=== PATIENT | male | born 1960 | race Caucasian/White ===

== ENCOUNTER 2018-01-09 18:30 | Inpatient (IN) | payer OTHER ==
[~2018-01-09] VITALS: Ht 185.4 cm; Wt 99.9 kg
[2018-01-09] MEDS ORDERED: SODIUM CHLORIDE 0.9% 1000ML 1,000 ML IV STA (18:42)
[2018-01-09 18:56] LABS: BASOPHILS % 0.1 % (0.0-1.0); LYMPHOCYTES # (AUTO) 21.2 (1.0-3.2); LYMPHOCYTES % 95.9 % (18.0-39.1); MEAN CORPUSCULAR HEMOGLOBIN 31.5 pg (28-32); MEAN CORPUSCULAR HGB CONC 34.5 g/dL (31-35); MEAN CORPUSCULAR VOLUME 91.5 fL (81-99); MONOCYTES # (AUTO) 0.4 (0.2-0.8); MONOCYTES % 1.9 % (4.4-11.3); NEUTROPHILS # (AUTO) 0.4 (2.1-6.9); PLATELET COUNT 152 x10e3/uL (140-360); RED BLOOD COUNT 3.17 x10e6/uL (4.3-5.7); RED CELL DISTRIBUTION WIDTH 13.7 % (11.7-14.4)
[2018-01-09] MEDS ORDERED: ACETAMINOPHEN 1000 MG/100 ML IV STA (18:59)
[2018-01-09] MEDS ORDERED: SODIUM CHLORIDE 0.9% 1000ML 1,000 ML IV ONE (19:00)
[2018-01-09 19:04] LABS: INR 1.28; PARTIAL THROMBOPLASTIN TIME 36.7 seconds (23.8-35.5)
[2018-01-09 19:14] LABS: ALBUMIN/GLOBULIN RATIO 0.9 (0.8-2.0); ANION GAP 16.9 mmol/L (8-16); CALCIUM 8.1 mg/dL (8.4-10.2); CREATININE, SERUM 2.14 mg/dL (0.72-1.25)
--- NOTE | 2018-01-09 19:14 | Diagnostic Imaging Report ---
EXAMINATION: CHEST SINGLE (PORTABLE) INDICATION: Cough and shortness of breath \S\ERMD ORDER \S\[id number] \S\1845 \S\Y COMPARISON: 12/11/2012 FINDINGS: AP view Limited by body habitus and low lung volumes. TUBES and LINES: None. LUNGS: Low lung volumes. Lungs are clear. There is no evidence of pneumonia or pulmonary edema. PLEURA: No pleural effusion or pneumothorax. HEART AND MEDIASTINUM: The cardiomediastinal silhouette is unremarkable. BONES AND SOFT TISSUES: No acute osseous lesion. Soft tissues are unremarkable. UPPER ABDOMEN: No free air under the diaphragm. IMPRESSION: No acute thoracic abnormality. Signed by: Dr. Juan J Dominguez MD on 01/09/2018 7:10 PM
[2018-01-09] MEDS ORDERED: MAGNESIUM SULFATE 2GM/50ML 50 ML IV ONE (19:15)
[2018-01-09] MEDS ORDERED: POTASSIUM CHLORIDE 20 MEQ TAB CR PO STA (19:15)
[2018-01-09 19:17] LABS: MAGNESIUM 1.1 MG/DL (1.3-2.1); POTASSIUM 2.9 mmol/L (3.5-5.1)
[2018-01-09 19:19] LABS: B-TYPE NATRIURETIC PEPTIDE2 13.2 pg/mL (0-100)
[2018-01-09 19:20] LABS: CREATINE KINASE MB 1.1 ng/mL (0-5.0)
[2018-01-09 19:31] LABS: HYPOCHROMASIA SLIGHT; LYMPHOCYTES % (MANUAL) 95 % (19-48); MONOCYTES % (MANUAL) 1 % (3.4-9.0); PLATELET ESTIMATE ADEQUATE; PLATELET MORPHOLOGY COMMENT NORMAL; RBC MORPHOLOGY COMMENT NORMAL
[2018-01-09] MEDS ORDERED: ONDANSETRON HCL INJ 2 MG/ML VIAL IV PRN (20:00)
[2018-01-09] MEDS ORDERED: CEFTRIAXONE SOD 1 GM VIAL IV SCH (20:00)
[2018-01-09] MEDS: AZITHROMYCIN 500MG/NS 250 ML 250 ML IV SCH (20:24)
[2018-01-09] MEDS: CEFTRIAXONE SOD 1 GM VIAL IV SCH (20:24)
--- OUTSIDE RECORDS SUMMARY | 2018-01-09 20:26 | XMS REPORT ---
Author Author [facility] Address Unknown Phone Unavailable Care Team Providers Care Goal Umpire Name Role Phone MUSTAPHA BERRIOS Unavailable Unavailable Problems This patient has no known problems. Allergies, Adverse Reactions, Alerts This patient has no known allergies or adverse reactions. Medications This patient has no known medications. Results Test Description Test Time Test Comments Text Results Atomic Results Result Comments CHEST SINGLE (PORTABLE) [place] [address] Patient Name: EDEN OVALLES MR #: [id number] : 1960 Age/Sex: 57/M Req #: [id number] Adm Physician: Ordered by: VIDYA SOLITARIO EDUCATIONAL THERAPIST Report #: [id number] Location: ER Room/Bed: Procedure: [id number] DX/CHEST SINGLE (PORTABLE) Exam Date: 01/09/18 Exam Time: 1845 REPORT STATUS: Signed EXAMINATION: CHEST SINGLE (PORTABLE) INDICATION: Cough and shortness of breath COMPARISON: 12/11/2012 FINDINGS: AP view Limited by body habitus and low lung volumes. TUBES and LINES: None. LUNGS: Low lung volumes. Lungs are clear. There is no evidence of pneumonia or pulmonary edema. PLEURA: No pleural effusion or pneumothorax. HEART AND MEDIASTINUM: The cardiomediastinal silhouette is unremarkable. BONES AND SOFT TISSUES: No acute osseous lesion. Soft tissues are unremarkable. UPPER ABDOMEN: No free air under the diaphragm. IMPRESSION: No acute thoracic abnormality. Signed by: Dr. Juan J Lai MD on 01/09/2018 7:10 PM Dictated By: JUAN J LAI MD 09 Transcribed By: KELSIE on 01/09/181909 COPY TO: VIDYA SOLITARIO NP
--- NOTE | 2018-01-09 20:52 | History and Physical ---
HISTORY OF PRESENT ILLNESS: Mr. Bocanegra is a white male patient of mine for approximately 7-8 years with clinical lymphatic leukemia. He has been treated extensively at the present time on Imbruvica. The patient was seen in the office because of upper respiratory tract infection consisting of cough with slightly yellowish sputum. The physical findings were consistent with bronchitis. Subsequently, the patient was given Vibramycin 100 mg p.o. b.i.d. for 10 days. I have also kept in touch with the patient and the to make sure that the symptoms sangeetha. I advised the patient that if the symptoms did not sangeetha to call me. The called me yesterday, and I advised the patient to be hospitalized. However, the patient waited until today. He comes to the ER with shortness of breath. The chest x-ray was reported normal. However, the symptoms are much more than the chest x-ray subsequently seen, admitted for further evaluation and treatment. PAST MEDICAL HISTORY: Chronic lymphatic leukemia. SOCIAL HISTORY: Noncontributory. FAMILY HISTORY: Noncontributory. ALLERGIES: NONE. MEDICATIONS: Imbruvica. REVIEW OF SYSTEMS: HEENT: Normal. CARDIAC: Normal. RESPIRATORY: At the present time, has bronchitis. GI: Normal. : Normal. MUSCULOSKELETAL: Normal. SKIN AND BREASTS: Normal. NEURO/ENDOCRINE: Normal. PHYSICAL EXAMINATION GENERAL: A large-built male. VITAL SIGNS: Pulse 140. Blood pressure 120/80. HEART: Tachycardic. LUNGS: Showing a few crepitations. ABDOMEN: Obese. There is no hepatosplenomegaly. RECTAL EXAM: Deferred. CENTRAL NERVOUS SYSTEM: Normal. EXTREMITIES: Essentially normal. IMPRESSION 1. Chronic lymphatic leukemia, stage 4, being treated with Imbruvica. 2. Possible bronchopneumonia. PLAN: Have appropriate cultures. CT of the chest. Aggressive antibiotics. Pulmonary consult as well as infectious disease consult. Job#: [id number]
[2018-01-09 21:00] VITALS: BP 104/61
--- NOTE | 2018-01-09 21:35 | Diagnostic Imaging Report ---
EXAM: CT CHEST WO DATE: 01/09/2018 7:47 PM INDICATION: \S\fever, cough, tachycardia \S\[id number] \S\2056 COMPARISON: None TECHNIQUE: Multidetector CT scanning of the chest was performed. Coronal and sagittal multiplanar reformations were obtained. IV Contrast: 0 ml Isovue 370/300 FINDINGS: LUNGS AND PLEURA: Minimal scattered areas of atelectasis or scarring. Stable nodular thickening of the right minor fissure seen on prior CT abdomen. No consolidations or edema. No effusions or pneumothorax. HEART, MEDIASTINUM, VESSELS: Normal heart size with coronary artery calcification. No pericardial effusion. No adenopathy. UPPER ABDOMEN: Partially imaged hepatosplenomegaly. MUSCULOSKELETAL: Healed left-sided rib fractures. Prior T12 vertebroplasty with mild anterior/central height loss. IMPRESSION: No acute abnormality. No evidence of pneumonia. Signed by: Dr Joselyn Lee MD on 01/09/2018 9:32 PM
[2018-01-10] VITALS (9 sets, daily range): BP systolic 88–142; BP diastolic 54–78
[2018-01-10] MEDS: ACETAMINOPHEN 325 MG TAB PO PRN ×3 (00:24→10:11)
[2018-01-10] MEDS: CEFTRIAXONE SOD 1 GM VIAL IV SCH (01:01)
[2018-01-10] MEDS: AZITHROMYCIN 500MG/NS 250 ML 250 ML IV SCH (01:01)
[2018-01-10 07:14] LABS: ALBUMIN 2.5 g/dL (3.5-5.0); ALBUMIN/GLOBULIN RATIO 0.9 (0.8-2.0); CALCIUM 7.7 mg/dL (8.4-10.2); CREATININE, SERUM 2.04 mg/dL (0.72-1.25); MAGNESIUM 1.3 MG/DL (1.3-2.1)
[2018-01-10 07:38] LABS: HEMATOCRIT 25.5 % (38.2-49.6); LYMPHOCYTES # (AUTO) 6.7 (1.0-3.2); LYMPHOCYTES % 90.9 % (18.0-39.1); MEAN CORPUSCULAR HEMOGLOBIN 31.5 pg (28-32); MEAN CORPUSCULAR HGB CONC 33.7 g/dL (31-35); MEAN CORPUSCULAR VOLUME 93.4 fL (81-99); MONOCYTES # (AUTO) 0.4 (0.2-0.8); MONOCYTES % 5.9 % (4.4-11.3); NEUTROPHILS # (AUTO) 0.2 (2.1-6.9); NEUTROPHILS % 2.9 % (38.7-80.0); RED BLOOD COUNT 2.73 x10e6/uL (4.3-5.7)
[2018-01-10 07:47] LABS: HEMOGLOBIN 8.6 g/dL (14.0-18.0); PLATELET COUNT 77 x10e3/uL (140-360)
[2018-01-10] MEDS ORDERED: AZITHROMYCIN 500MG/NS 250 ML 250 ML IV SCH (09:00)
[2018-01-10 09:19] LABS: HYPOCHROMASIA SLIGHT; LYMPHOCYTES % (MANUAL) 87 % (19-48); MONOCYTES % (MANUAL) 7 % (3.4-9.0); NEUTROPHILS % (MANUAL) 5 % (40-74); PLATELET ESTIMATE SLIGHTLY DECREASED; PLATELET MORPHOLOGY COMMENT FEW LARGE; RBC MORPHOLOGY COMMENT NORMAL
[2018-01-10] MEDS ORDERED: POTASSIUM CHL 40 MEQ in SODIUM CHLORIDE 0.9% 250ML 230 ML IV SCH ×4 (10:15)
[2018-01-10] MEDS ORDERED: SODIUM CHLORIDE 0.9% 250ML 250 ML ONE (10:25)
--- NOTE | 2018-01-10 11:47 | Diagnostic Imaging Report ---
PROCEDURE:X-RAY PARANASAL SINUSES, COMPLETE COMPARISON:None. INDICATIONS:SINUSITIS FINDINGS: The paranasal sinuses are clear. No fluid levels are identified. No expansile or destructive osseous lesions are seen. No evidence of fracture. CONCLUSION: No radiographic evidence of acute sinusitis. Dictated by: Jovan Majano M.D. on 01/10/2018 at 11:48 Electronically approved by: Jovan Majano M.D. on 01/10/2018 at 11:48
[2018-01-10] MEDS ORDERED: DIATRIZOATE MEGL/DIATRIZOA SOD 30 ML BTL PO ONE (12:50)
--- NOTE | 2018-01-10 13:11 | Consultation ---
DATE OF CONSULTATION: January 10, 2018 PULMONARY CONSULTATION PATIENT OF: Dr. Messer. HISTORY OF PRESENT ILLNESS: Charming, but unfortunate 57-year-old gentleman with a history of CLL diagnosed in 2005. He said he was in remission until 2017. Has been ill for approximately 2 weeks with cough, sinusitis. Cough has been nonproductive. He has had a nonproductive cough on and off for 4 months. He has had diarrhea for the last 3 days. He was recently started on doxycycline. HOME MEDICATIONS: Include allopurinol, ramipril, and Imbruvica. 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 Born in [place]. PAST SURGICAL HISTORY: He had total knee replacement of right knee. He has had ear surgeries for cholesteatoma. FAMILY HISTORY: Positive for renal cancer, emphysema, and hypertension. PHYSICAL EXAMINATION GENERAL: He is a well-developed white male, anxious, but in no acute distress. VITAL SIGNS: Temperature 100.2, blood pressure 114/66, pulse 125, and respirations 22. HEAD: Normocephalic, atraumatic. EYES: Extraocular movements intact. LUNGS: Clear. HEART: Regular rhythm. ABDOMEN: Nontender. EXTREMITIES: Nonedematous. IMPRESSION AND PLAN: There are vague infiltrates in the right lung, thought more likely to be scar than acute infection; however, the patient is quite immunosuppressed. Continue therapy of pneumonia. We will check stool and sputum. Request sinus series. Infectious disease has also been consulted for antibiotic therapy. Currently, the patient is receiving Rocephin and Zithromax. Thank you for this kind referral. Job#: [id number] ANAND
[2018-01-10 14:18] LABS: COLOR,URINE YELLOW (YELLOW)
[2018-01-10 14:19] LABS: CLARITY,URINE CLOUDY (CLEAR); LEUKOCYTE ESTERASE ,URINE NEGATIVE (NEGATIVE); NITRITE,URINE NEGATIVE (NEGATIVE); PROTEIN,URINE DIPSTICK 2+ (NEGATIVE)
[2018-01-10 14:20] LABS: BILIRUBIN,URINE NEGATIVE (NEGATIVE); KETONES,URINE NEGATIVE (NEGATIVE); URINE UROBILINOGEN 0.2 mg/dL (0.2 - 1)
[2018-01-10 14:27] LABS: BACTERIA,URINE FEW /HPF; EPITHELIAL CELLS,URINE FEW /LPF
[2018-01-10 14:28] LABS: AMORPHOUS SEDIMENT,URINE FEW (FEW)
[2018-01-10] MEDS: FLUCONAZOLE 200 MG/100 ML 100 ML IV SCH (14:30)
[2018-01-10] MEDS ORDERED: ALBUTEROL SULF 0.083% NEB SOLN 3 ML NEB NEB SCH (15:00)
--- NOTE | 2018-01-10 15:09 | Consultation ---
DATE OF CONSULTATION: January 10, 2018 REASON FOR CONSULTATION: This patient has fever, chills and fatigue. HISTORY OF PRESENT ILLNESS: This is a very pleasant 57-year-old gentleman who has history of chronic lymphocytic leukemia which he has had for 16 years. He was in remission, then he had it again apparently seven years ago. Patient is taking Imbruvica. Patient is doing well otherwise. He has no complaints. The patient was doing well until about 3 weeks ago when he started to have cough which was dry. This getting progressively worse in terms of the cough. He gets easily short of breath, then he started to have fever and not feeling well. He saw Dr. Messer and he gave him doxycycline but the patient did not improve. He sent to the emergency room to be admitted because he said if he walks from the bed to the restroom he gets really short of breath and he is unsteady. According to the he was a little bit confused when he first came here but he is better now. PAST MEDICAL HISTORY: Chronic lymphocytic leukemia. PAST SURGICAL HISTORY: Denies. ALLERGIES: NKA. SOCIAL HISTORY: He denies smoking, drug abuse, alcohol abuse. He has 1 dog. He works in [employer]. The patient apparently is moving to a new house and he has been cleaning the attic a few weeks ago and there was some mold in the attic. REVIEW OF SYSTEMS HEENT: There is no headache or visual changes, hearing changes. GI: There is no nausea, no vomiting, no diarrhea. CARDIAC: There is no arrhythmia or chest pain. NEURO: No seizure activity. SKIN: There is no rash, joint swelling or edema. The patient is overall, he said, extremely weak when he walks but when he is lying in bed is feeling better. LABORATORY DATA: Reviewed. White count 7.34, hemoglobin 8.6, platelets 77, creatinine 2.04. MEDICATIONS: List reviewed. He is currently on ceftriaxone, azithromycin. CAT scan of chest was negative. Chest x-ray was negative. PHYSICAL EXAMINATION GENERAL: He is current alert, oriented. Does not seem to be in acute distress. VITALS: Stable. Currently afebrile. HEENT: Normocephalic, not icteric. NECK: Supple. CHEST: Clear bilateral. HEART: S1, S2. No S3, no S4, no murmur. ABDOMEN: Soft. Bowel sounds present. No tenderness. EXTREMITIES: No edema. IMPRESSION: Fever and shortness of breath. His influenza has been negative. I am concerned about histoplasmosis or other fungal in a patient who has been in an attic around old mold. Will put him on Diflucan. I think he is feeling better already because of the IV fluid. Will keep on current choice of antibiotic. Will check for other pathogens such as chlamydia mycoplasma although the CAT scan does not really reveal any of that. Will Check a CT of abdomen and pelvic to rule out any other abnormality in the abdomen. I would like to thank Dr. Messer for asking me to see this very interesting case. Will follow with you. Job#: [id number] RUPERTO
[2018-01-10] MEDS ORDERED: ONDANSETRON HCL 4 MG ORAL DISINTEGRATING TAB PO PRN (15:15)
[2018-01-10] MEDS ORDERED: ACETAMINOPHEN 1000 MG/100 ML 100 ML IV ONE (15:19)
[2018-01-10] MEDS: ACETAMINOPHEN 1000 MG/100 ML IV SCH ×2 (15:41→23:38)
--- NOTE | 2018-01-10 15:53 | Diagnostic Imaging Report ---
PROCEDURE: CT ABDOMEN AND PELVIS WITHOUT CONTRAST TECHNIQUE: The abdomen and pelvis were scanned utilizing a multidetector helical scanner from the diaphragm to the lesser trochanter after the oral administration of dilute Gastrografin. No IV contrast was given due to decreased GFR. Coronal and sagittal multiplanar reformations were obtained. COMPARISON: [facility], CT, CT ABDOMEN/PELVIS W, 12/20/2012, 17:32. [facility], CT, CT ABDOMEN W, 07/19/2016, 14:33. INDICATIONS: rule out infection, fever cough FINDINGS: ABSENCE OF INTRAVENOUS CONTRAST DECREASES SENSITIVITY FOR DETECTION OF FOCAL LESIONS AND VASCULAR PATHOLOGY. LOWER THORAX: Stable 6 mm mariusz-fissural nodule at the right major fissure (series 2 image 6, and sagittal image 54). Linear subsegmental atelectasis or scarring in the lingula. HEPATOBILIARY: Liver is moderately enlarged, measuring 20.0 cm in the right midclavicular line. 6 mm hypodense lesion in hepatic segment (series 2, image 27), which is too small to characterize, but likely represents a small cyst. No other focal lesions. No biliary ductal dilation. Gallbladder is unremarkable. SPLEEN: Mild splenomegaly, measuring 15.7 cm in AP diameter. This is markedly decreased since the prior exam. PANCREAS: No focal masses or ductal dilatation. ADRENALS: No adrenal nodules. KIDNEYS/URETERS: No hydronephrosis, stones, or contour abnormalities. PELVIC ORGANS/BLADDER: Bladder, prostate and seminal vesicles are unremarkable. PERITONEUM / RETROPERITONEUM: No free air or fluid. LYMPH NODES: Interval decrease in size of 2 aortocaval nodes which measure 0.8 and 1.0 cm in short axis (series 2, image 40 and 45), which previously measured 1.3 and 1.6 cm, respectively. Slight interval increase in size of left common iliac node which measures 1.1 cm in short axis (series 2 image 55) and previously measured 0.9 cm. Stable 1.1 cm right common iliac node (series 2, image 52). Interval decrease in size of 1.0 cm right common iliac node (series 2, image 55), which previously measured 1.5 cm. No other adenopathy. VESSELS: Unremarkable for noncontrast exam.. GI TRACT: No bowel dilation or evidence of obstruction. No pericolonic inflammatory changes. BONES AND SOFT TISSUES: No aggressive lytic lesion. Stable anterior wedge deformity of the L3 vertebral body. Vertebroplasty changes at T12. Right moderate fat and small bowel containing inguinal hernia. Bowel is unremarkable, without obstruction, wall thickening, or free fluid. Moderate to large inguinal hernia containing fat and a small portion of the descending colon. The bowel is unremarkable, without obstruction, wall thickening, or free fluid.. IMPRESSION: 1. no CT evidence of intra-abdominal free fluid or fluid collection to suggest abscess, within the limitations of this noncontrast exam. 2. Aortocaval and common iliac adenopathy is decreased since the prior exam. A single left common iliac node is minimally increased in size when compared to prior exam. No new adenopathy. 3. Moderate hepatomegaly. Marked interval improvement in previously visualized splenomegaly, which is now mild. 4. Bilateral fat and bowel containing inguinal hernias, without evidence of strangulation or incarceration. Kashmir Martinez M.D. Dictated by: Kashmir Martinez M.D. on 01/10/2018 at 15:54 Electronically approved by: Kashmir Martinez M.D. on 01/10/2018 at 15:54
[2018-01-10] MEDS ORDERED: SODIUM CHLORIDE 0.9% 1000ML 1,000 ML IV SCH (16:15)
[2018-01-10] MEDS ORDERED: METOPROLOL TARTRATE INJ 1 MG/ML VIAL IV PRN (16:15)
[2018-01-10] MEDS ORDERED: SODIUM CHLORIDE 0.9% 1000ML 1,000 ML ONE (16:38)
[2018-01-10] MEDS ORDERED: METOPROLOL TARTRATE 25 MG TAB PO PRN (17:15)
[2018-01-10] MEDS: LEVALBUTEROL HCL SOLN NEBU 0.63 MG/3 ML NEB INH PRN (21:30)
--- NOTE | 2018-01-10 22:38 | Diagnostic Imaging Report ---
CHEST SINGLE (PORTABLE), 01/10/2018 9:47 PM Technique: CHEST SINGLE (PORTABLE) Comparison: 01/09/2018 Clinical history: Shortness of breath Findings: Stable appearance of the heart, mediastinum, lungs and pleural spaces. Impression: 1. Lines/Tubes: None 2. No acute abnormality. Signed by: Dr Joselyn Lee MD on 01/10/2018 10:34 PM
[2018-01-11] VITALS (7 sets, daily range): BP systolic 93–140; BP diastolic 54–76
[2018-01-11] MEDS: SODIUM CHLORIDE 0.9% 1000ML 1,000 ML IV SCH ×2 (00:06→12:30)
[2018-01-11] MEDS: LORAZEPAM INJ 2 MG/ML VIAL IV PRN ×2 (03:14→23:15)
[2018-01-11] MEDS: CEFTRIAXONE SOD 1 GM VIAL IV SCH (05:39)
[2018-01-11] MEDS: ACETAMINOPHEN 1000 MG/100 ML IV SCH ×3 (05:39→17:37)
[2018-01-11 07:04] LABS: BASOPHILS % 0.1 % (0.0-1.0); HEMATOCRIT 24.9 % (38.2-49.6); HEMOGLOBIN 8.4 g/dL (14.0-18.0); LYMPHOCYTES # (AUTO) 10.5 (1.0-3.2); LYMPHOCYTES % 92.9 % (18.0-39.1); MEAN CORPUSCULAR HGB CONC 33.7 g/dL (31-35); MEAN CORPUSCULAR VOLUME 91.9 fL (81-99); MONOCYTES # (AUTO) 0.4 (0.2-0.8); MONOCYTES % 3.6 % (4.4-11.3); NEUTROPHILS # (AUTO) 0.4 (2.1-6.9); NEUTROPHILS % 3.1 % (38.7-80.0); PLATELET COUNT 101 x10e3/uL (140-360); RED BLOOD COUNT 2.71 x10e6/uL (4.3-5.7)
[2018-01-11 07:22] LABS: ALBUMIN 2.2 g/dL (3.5-5.0); ALBUMIN/GLOBULIN RATIO 0.7 (0.8-2.0); ANION GAP 12.8 mmol/L (8-16); CALCIUM 7.9 mg/dL (8.4-10.2); CREATININE, SERUM 1.75 mg/dL (0.72-1.25)
[2018-01-11 07:30] LABS: POTASSIUM 2.8 mmol/L (3.5-5.1)
[2018-01-11 07:49] LABS: MAGNESIUM 1.4 MG/DL (1.3-2.1); PHOSPHORUS 2.3 MG/DL (2.3-4.7)
[2018-01-11] MEDS ORDERED: POTASSIUM CHLORIDE 20MEQ/100ML 300 ML IV ONE (08:00)
[2018-01-11] MEDS: FLUCONAZOLE 200 MG/100 ML 100 ML IV SCH (09:39)
[2018-01-11 10:54] LABS: HYPOCHROMASIA SLIGHT; LYMPHOCYTES % (MANUAL) 98 % (19-48); MONOCYTES % (MANUAL) 2 % (3.4-9.0)
[2018-01-11 10:55] LABS: ANISOCYTOSIS SLIGHT; PLATELET ESTIMATE SLIGHTLY DECREASED; PLATELET MORPHOLOGY COMMENT NORMAL; POIKILOCYTOSIS SLIGHT; RBC MORPHOLOGY COMMENT NORMAL
--- NOTE | 2018-01-11 10:57 | Diagnostic Imaging Report ---
EXAMINATION: CHEST XRAY LINE PLACEMENT INDICATION: \S\PICC PLACEMENT COMPARISON: Chest x-ray 01/10/2018. FINDINGS: AP view TUBES and LINES: New right PICC line with tip at high SVC. LUNGS: Lungs are well inflated. There are bibasilar atelectasis. Increasing perihilar interstitial opacities, consistent with interstitial edema. PLEURA: No pleural effusion or pneumothorax. HEART AND MEDIASTINUM: The cardiomediastinal silhouette is unremarkable. BONES AND SOFT TISSUES: No acute osseous lesion. Soft tissues are unremarkable. UPPER ABDOMEN: No free air under the diaphragm. IMPRESSION: 1. New right PICC line with tip at high SVC. 2. New increasing early interstitial edema. Signed by: Dr. Jose Carlos Guzmán M.D. on 01/11/2018 10:53 AM
[2018-01-11] MEDS: PANTOPRAZOLE SOD 40 MG TABEC PO SCH (12:00)
--- NOTE | 2018-01-11 14:18 | Consultation ---
DATE OF CONSULTATION: January 11, 2018 CARDIOLOGY CONSULTATION REASON FOR CONSULTATION: Tachycardia. HISTORY OF PRESENT ILLNESS: Mr. Bocanegra is a 57-year-old gentleman with a past medical history of chronic lymphocytic leukemia diagnosed in 2005, and was in remission in 2006. Unfortunately, had recurrence in 2016, and has been on Imbruvica since that time. The patient also has a history of hypertension and chews dipping tobacco. He was in his usual state of health up until the several weeks where he has been having episodic fevers, chills, malaise, and sweats. He will get these hot and cold periods, and has reported a marked decrease in energy over that time period. He has developed fits of cough, and has had exertional dyspnea and just malaise, and just not feeling quite himself. He saw his oncologist earlier this week where he was started on doxycycline, and 2 days later has developed naila profuse diarrhea. He comes in hospitalized with poor appetite, dehydration, JOSÉ, hypokalemia, hypomagnesemia, and in this setting has had bouts of fevers and chills. Associated with those episodes, his heart rate would race up to the 140s and 150s range. Since being monitored on telemetry, he is maintained in sinus tachycardia, and now his heart rate most recently is down in the 90-100 range. The patient denies any chest pain or discomfort. He denies any orthopnea or any lower extremity edema. He has had no prior cardiac history. PAST MEDICAL HISTORY 1. Chronic lymphocytic leukemia diagnosed in 2005 and remission in 2006, and recurrence in 2016, on Imbruvica. 2. Hypertension, on ramipril therapy. PAST SURGICAL HISTORY: History of total right knee replacement surgery in the past. FAMILY HISTORY: Mother is alive. She has had TIA, kidney issues. Father at 72 due to kidney cancer. Had some heart problems. SOCIAL HISTORY: He chews tobacco. Is a social alcohol drinker. Denies any illicit drug use. ALLERGIES: NO KNOWN DRUG ALLERGIES. HOME MEDICATIONS: Include allopurinol, ramipril and Zantac tablets for GERD. REVIEW OF SYSTEMS GENERAL: Positive for fevers, chills, weight changes. HEENT: No headaches. No visual complaints. No sore throat. Does report occasional stuffy nose with postnasal drip symptoms. RESPIRATORY: Positive for hacking cough and exertional dyspnea that is relatively subacute. CARDIOVASCULAR: Denies any overt chest pain or discomfort. No orthopnea. Reports some palpitations with fevers. GI: Denies any abdominal pain. Positive for profuse diarrhea. No bright red blood per rectum or melena. Does have a history of GERD. : Denies any dysuria, pyuria or change in urinary frequency. MUSCULOSKELETAL: Positive for weakness in his joints and swelling in his wrist and ankle joints at times. ENDOCRINE: No known diabetes or thyroid issues. NEUROLOGY: Denies any focal weakness, numbness, tingling, seizures, headaches. HEME: Positive for immunodeficiency with CLL. PHYSICAL EXAMINATION VITALS: Height of 61 inches, weight 219 pounds, BMI is 28.9, temperature 97.4, pulse 93, blood pressure 93/54, respiratory rate 18, O2 sat 98% on room air. GENERAL: This is a well-nourished, well-developed gentleman who is currently in no apparent distress. HEENT: Normocephalic and atraumatic. Pupils equal, round and reactive to light. Extraocular muscles intact. Oropharynx is clear. NECK: No elevation of jugular venous pulsation. No carotid bruits. CARDIOVASCULAR: Regular rate and rhythm. Normal S1 and S2. Soft 1/6 systolic murmur at the left lower sternal border. LUNGS: Relatively clear to auscultation bilaterally. Good air entry. ABDOMEN: Soft, nontender and nondistended. Normoactive bowel sounds. BACK: No costovertebral angle tenderness. EXTREMITIES: Warm. There is a right upper extremity PICC in the antecubital fossa region that is placed today. Two plus bilateral radial pulses and 2+ bilateral femoral pulses and no peripheral edema. NEUROLOGIC: Cranial nerves II-XII are intact. Strength is 5/5 and appears to be nonfocal. LABS: White count 11.3, hemoglobin 8.4, hematocrit 24.9, and platelets of 101,000. Sodium 128, potassium 2.8, chloride 102, bicarb 16, BUN 29, creatinine 1.75, glucose 139. INR is 1.28. AST 25, ALT 23, alk phos 35, total bili 0.6. EKG reveals sinus tachycardia. DIAGNOSES 1. Severe sepsis. 2. Chronic lymphocytic leukemia, recurrence, on therapy. 3. Acute kidney injury. 4. Dehydration. 5. Hypokalemia. 6. Hypomagnesemia. 7. Protein calorie malnutrition. 8. Anemia. 9. Thrombocytopenia. PLAN/RECOMMENDATIONS 1. From a cardiovascular standpoint, the patient's heart rate issues are likely related infectious and inflammation, and Cytokine release spells. 2. Will put him on metoprolol 25 mg q.6 h. with parameters. 3. Will check and evaluate his left ventricular function. 4. Antibiotic therapy per ID and pulmonary service. 5. Hematologic issues per hematology. 6. Will continue to follow this patient with you. 7. He is monitored on telemetry currently. Job#: [id number] EVITA GOMEZ
[2018-01-11] MEDS ORDERED: LOPERAMIDE HCL 2 MG CAP PO PRN (14:30)
--- NOTE | 2018-01-11 14:59 | Progress Note ---
DATE: January 11, 2018 Mr. Bocanegra is doing better. Has no complaints. His fever is trending down. No headache. He does remember being in the attic with his son-in-law. His son-in-law also got the same symptoms, but it did resolve in a few days. PHYSICAL EXAMINATION GENERAL: Today, he is more alert. He is alert and oriented. Does not seem to be in acute distress. VITALS: His temperature is coming down. Vitals stable. Afebrile. HEENT: Anicteric. NECK: Supple. CHEST: Clear. HEART: S1 and S2. No murmur. ABDOMEN: Soft. Bowel sounds present. EXTREMITIES: No edema. REVIEW OF SYSTEMS: Pulmonary negative. Otherwise unremarkable. IMPRESSION 1. Presumptive histoplasmosis: We are still waiting on the tests. Continue with Diflucan. Will discontinue azithromycin today. If blood cultures are negative, will discontinue Rocephin tomorrow. 2. History of chronic lymphocytic leukemia. 3. History of hypertension: Will follow. Job#: [id number] SC
[2018-01-11] MEDS ORDERED: SODIUM BICARBONATE 650 MG TAB PO ONE (15:30)
[2018-01-11] MEDS: BISMUTH SUBSALICYLATE 262 MG TAB PO SCH ×3 (15:56→21:56)
[2018-01-11] MEDS: SODIUM BICARBONATE 650 MG TAB PO SCH (17:06)
[2018-01-11] MEDS: PROMETHAZINE/CODEINE 5 ML UDC PO PRN (17:35)
[2018-01-11] MEDS: KCL 20MEQ/.9 SOD CHL 1,000 ML IV SCH (19:34)
[2018-01-11] MEDS ORDERED: ZOLPIDEM TARTRATE 10 MG TAB PO PRN (21:00)
[2018-01-11] MEDS: ACETAMINOPHEN 325 MG TAB PO PRN (21:56)
[2018-01-12] VITALS (8 sets, daily range): BP systolic 92–130; BP diastolic 54–78
[2018-01-12] MEDS: BISMUTH SUBSALICYLATE 262 MG TAB PO SCH ×6 (02:39→21:34)
[2018-01-12] MEDS: ACETAMINOPHEN 325 MG TAB PO PRN ×2 (04:22→20:02)
[2018-01-12 06:31] LABS: HEMATOCRIT 24.4 % (38.2-49.6); HEMOGLOBIN 8.3 g/dL (14.0-18.0); LYMPHOCYTES # (AUTO) 6.5 (1.0-3.2); LYMPHOCYTES % 86.8 % (18.0-39.1); MEAN CORPUSCULAR VOLUME 94.2 fL (81-99); MONOCYTES # (AUTO) 0.3 (0.2-0.8); MONOCYTES % 3.6 % (4.4-11.3); NEUTROPHILS # (AUTO) 0.7 (2.1-6.9); NEUTROPHILS % 9.6 % (38.7-80.0); PLATELET COUNT 94 x10e3/uL (140-360); RED BLOOD COUNT 2.59 x10e6/uL (4.3-5.7); RED CELL DISTRIBUTION WIDTH 14.3 % (11.7-14.4)
[2018-01-12] MEDS: CEFTRIAXONE SOD 1 GM VIAL IV SCH (06:52)
[2018-01-12 07:11] LABS: CALCIUM 7.6 mg/dL (8.4-10.2); CREATININE, SERUM 1.65 mg/dL (0.72-1.25); MAGNESIUM 1.6 MG/DL (1.3-2.1); PHOSPHORUS 2.1 MG/DL (2.3-4.7)
[2018-01-12] MEDS: PANTOPRAZOLE SOD 40 MG TABEC PO SCH (08:30)
[2018-01-12] MEDS: SODIUM BICARBONATE 650 MG TAB PO SCH ×2 (09:18→18:22)
[2018-01-12] MEDS: FILGRASTIM 480 MCG/0.8 ML VIAL SC SCH (09:18)
[2018-01-12] MEDS: KCL 20MEQ/.9 SOD CHL 1,000 ML IV SCH ×2 (09:18→18:22)
[2018-01-12] MEDS: FLUCONAZOLE 200 MG/100 ML 100 ML IV SCH (09:19)
[2018-01-12] MEDS: PROMETHAZINE/CODEINE 5 ML UDC PO PRN (10:10)
[2018-01-12] MEDS ORDERED: POTASSIUM CHLORIDE 20MEQ/100ML 200 ML IV ONE (10:30)
[2018-01-12] MEDS ORDERED: ACETAMINOPHEN 1000 MG/100 ML IV PRN (15:15)
[2018-01-12] MEDS ORDERED: POTASSIUM PHOSPHATE 20 MM in SODIUM CHLORIDE 0.9% 250ML 250 ML IV ONE (16:30)
[2018-01-13] VITALS (7 sets, daily range): BP systolic 109–122; BP diastolic 60–75
[2018-01-13] MEDS: KCL 20MEQ/.9 SOD CHL 1,000 ML IV SCH ×4 (01:40→15:51)
[2018-01-13] MEDS: BISMUTH SUBSALICYLATE 262 MG TAB PO SCH ×6 (02:00→22:08)
[2018-01-13] MEDS: LEVALBUTEROL HCL SOLN NEBU 0.63 MG/3 ML NEB INH PRN ×2 (05:50→20:20)
[2018-01-13] MEDS ORDERED: CEFTRIAXONE SOD 1 GM VIAL IV SCH (06:00)
[2018-01-13 06:23] LABS: BASOPHILS % 0.1 % (0.0-1.0); EOSINOPHILS % 0.3 % (0.0-6.0); HEMOGLOBIN 7.7 g/dL (14.0-18.0); LYMPHOCYTES # (AUTO) 7.3 (1.0-3.2); LYMPHOCYTES % 80.7 % (18.0-39.1); MEAN CORPUSCULAR HEMOGLOBIN 31.8 pg (28-32); MEAN CORPUSCULAR HGB CONC 33.6 g/dL (31-35); MEAN CORPUSCULAR VOLUME 94.6 fL (81-99); MONOCYTES # (AUTO) 0.2 (0.2-0.8); MONOCYTES % 2.1 % (4.4-11.3); NEUTROPHILS # (AUTO) 1.4 (2.1-6.9); NEUTROPHILS % 15.9 % (38.7-80.0); PLATELET COUNT 102 x10e3/uL (140-360); RED BLOOD COUNT 2.42 x10e6/uL (4.3-5.7); RED CELL DISTRIBUTION WIDTH 14.6 % (11.7-14.4)
[2018-01-13 06:28] LABS: HEMATOCRIT 22.9 % (38.2-49.6)
[2018-01-13] MEDS: ACETAMINOPHEN 325 MG TAB PO PRN ×2 (06:32→16:00)
--- NOTE | 2018-01-13 06:41 | Diagnostic Imaging Report ---
CHEST SINGLE (PORTABLE), 01/13/2018 6:00 AM Technique: CHEST SINGLE (PORTABLE) Comparison: Previous day Clinical history: \S\cough, fever, shortness of breath Findings: See Impression Impression: 1. Lines/Tubes: Stable right PICC over the SVC. 2. Stable cardiomediastinal silhouette. 3. Mild bibasilar infrahilar opacity, favor vascular crowding/atelectasis. Signed by: Dr Joselyn Lee MD on 01/13/2018 6:38 AM
[2018-01-13 07:02] LABS: ANION GAP 10.3 mmol/L (8-16); CALCIUM 7.5 mg/dL (8.4-10.2); CREATININE, SERUM 1.3 mg/dL (0.72-1.25); PHOSPHORUS 2.7 MG/DL (2.3-4.7); POTASSIUM 3.3 mmol/L (3.5-5.1)
[2018-01-13 07:38] LABS: LYMPHOCYTES % (MANUAL) 72 % (19-48); MONOCYTES % (MANUAL) 2 % (3.4-9.0); NEUTROPHILS % (MANUAL) 26 % (40-74)
[2018-01-13 07:39] LABS: ANISOCYTOSIS SLIGHT; HYPOCHROMASIA SLIGHT; PLATELET ESTIMATE SLIGHTLY DECREASED; PLATELET MORPHOLOGY COMMENT NORMAL; RBC MORPHOLOGY COMMENT NORMAL
[2018-01-13] MEDS: PANTOPRAZOLE SOD 40 MG TABEC PO SCH (08:28)
[2018-01-13] MEDS: FILGRASTIM 480 MCG/0.8 ML VIAL SC SCH (09:22)
[2018-01-13] MEDS: SODIUM BICARBONATE 650 MG TAB PO SCH ×2 (09:22→18:32)
[2018-01-13] MEDS: FLUCONAZOLE 200 MG/100 ML 100 ML IV SCH (09:22)
[2018-01-13] MEDS ORDERED: POTASSIUM CHLORIDE 20MEQ/100ML 200 ML IV ONE (10:30)
[2018-01-14] VITALS (7 sets, daily range): BP systolic 114–140; BP diastolic 60–80
[2018-01-14] MEDS: ACETAMINOPHEN 325 MG TAB PO PRN (01:11)
[2018-01-14] MEDS: BISMUTH SUBSALICYLATE 262 MG TAB PO SCH ×6 (02:27→22:00)
[2018-01-14] MEDS: KCL 20MEQ/.9 SOD CHL 1,000 ML IV SCH ×3 (04:13→17:47)
[2018-01-14] MEDS: PANTOPRAZOLE SOD 40 MG TABEC PO SCH (08:00)
[2018-01-14 08:08] LABS: BASOPHILS % 0.1 % (0.0-1.0); EOSINOPHILS % 0.4 % (0.0-6.0); HEMATOCRIT 24.1 % (38.2-49.6); LYMPHOCYTES # (AUTO) 6.1 (1.0-3.2); LYMPHOCYTES % 71.5 % (18.0-39.1); MEAN CORPUSCULAR HEMOGLOBIN 31.5 pg (28-32); MEAN CORPUSCULAR HGB CONC 33.2 g/dL (31-35); MEAN CORPUSCULAR VOLUME 94.9 fL (81-99); MONOCYTES # (AUTO) 0.1 (0.2-0.8); MONOCYTES % 1.3 % (4.4-11.3); NEUTROPHILS # (AUTO) 2.1 (2.1-6.9); NEUTROPHILS % 24.7 % (38.7-80.0); PLATELET COUNT 118 x10e3/uL (140-360); RED BLOOD COUNT 2.54 x10e6/uL (4.3-5.7); RED CELL DISTRIBUTION WIDTH 14.7 % (11.7-14.4)
[2018-01-14 08:20] LABS: ALANINE AMINOTRANSFERASE 42 IU/L (0-55); ALBUMIN/GLOBULIN RATIO 0.7 (0.8-2.0); ALKALINE PHOSPHATASE 60 IU/L (40-150); ANION GAP 8.5 mmol/L (8-16); BLOOD UREA NITROGEN 23 mg/dL (7-26); BUN/CREATININE RATIO 21 (6-25); CALCIUM 7.7 mg/dL (8.4-10.2); CARBON DIOXIDE 20 mmol/L (22-29); CHLORIDE 109 mmol/L (98-107); CREATININE, SERUM 1.08 mg/dL (0.72-1.25); EST GLOMERULAR FILTRATION RATE > 60 ML/MIN (60-); GLUCOSE 106 mg/dL (74-118); MAGNESIUM 1.7 MG/DL (1.3-2.1); PHOSPHORUS 2.9 MG/DL (2.3-4.7); POTASSIUM 3.5 mmol/L (3.5-5.1); SODIUM 134 mmol/L (136-145)
[2018-01-14] MEDS: SODIUM BICARBONATE 650 MG TAB PO SCH ×2 (08:34→17:47)
[2018-01-14] MEDS: FLUCONAZOLE 200 MG/100 ML 100 ML IV SCH (09:46)
[2018-01-14 12:14] LABS: EOSINOPHILS % (MANUAL) 2 % (0-7); LYMPHOCYTES % (MANUAL) 69 % (19-48); METAMYELOCYTES % (MANUAL) 1 % (0-0); MONOCYTES % (MANUAL) 2 % (3.4-9.0); NEUTROPHILS % (MANUAL) 26 % (40-74)
[2018-01-14 12:15] LABS: HYPOCHROMASIA SLIG; OVALOCYTES FEW; PLATELET ESTIMATE ADEQUATE; PLATELET MORPHOLOGY COMMENT FEW LARGE; POLYCHROMASIA FEW; RBC MORPHOLOGY COMMENT ABNORMAL
[2018-01-14] MEDS: METOPROLOL TARTRATE 25 MG TAB PO SCH (17:48)
[2018-01-15] VITALS: BP 127/68
[2018-01-15] MEDS: PROMETHAZINE/CODEINE 5 ML UDC PO PRN (01:38)
[2018-01-15] MEDS: BISMUTH SUBSALICYLATE 262 MG TAB PO SCH ×3 (02:16→09:38)
[2018-01-15] MEDS: KCL 20MEQ/.9 SOD CHL 1,000 ML IV SCH (03:59)
[2018-01-15 06:07] LABS: BASOPHILS % 0.1 % (0.0-1.0); EOSINOPHILS % 0.5 % (0.0-6.0); HEMATOCRIT 25.4 % (38.2-49.6); HEMOGLOBIN 8.3 g/dL (14.0-18.0); LYMPHOCYTES # (AUTO) 5.5 (1.0-3.2); LYMPHOCYTES % 62.7 % (18.0-39.1); MEAN CORPUSCULAR HEMOGLOBIN 31.8 pg (28-32); MEAN CORPUSCULAR HGB CONC 32.7 g/dL (31-35); MEAN CORPUSCULAR VOLUME 97.3 fL (81-99); MONOCYTES # (AUTO) 0.1 (0.2-0.8); MONOCYTES % 1.6 % (4.4-11.3); NEUTROPHILS # (AUTO) 2.9 (2.1-6.9); NEUTROPHILS % 33.7 % (38.7-80.0); PLATELET COUNT 136 x10e3/uL (140-360); RED BLOOD COUNT 2.61 x10e6/uL (4.3-5.7); RED CELL DISTRIBUTION WIDTH 14.7 % (11.7-14.4)
[2018-01-15 06:27] LABS: ANION GAP 10.8 mmol/L (8-16); BLOOD UREA NITROGEN 21 mg/dL (7-26); BUN/CREATININE RATIO 18 (6-25); CALCIUM 7.9 mg/dL (8.4-10.2); CARBON DIOXIDE 21 mmol/L (22-29); CHLORIDE 109 mmol/L (98-107); CREATININE, SERUM 1.15 mg/dL (0.72-1.25); EST GLOMERULAR FILTRATION RATE > 60 ML/MIN (60-); GLUCOSE 94 mg/dL (74-118); POTASSIUM 3.8 mmol/L (3.5-5.1); SODIUM 137 mmol/L (136-145)
[2018-01-15] MEDS: PANTOPRAZOLE SOD 40 MG TABEC PO SCH (07:30)
[2018-01-15 08:31] VITALS: BP 116/71
[2018-01-15 08:37] LABS: EOSINOPHILS % (MANUAL) 1 % (0-7); HYPOCHROMASIA SLIGHT; LYMPHOCYTES % (MANUAL) 61 % (19-48); METAMYELOCYTES % (MANUAL) 1 % (0-0); MONOCYTES % (MANUAL) 1 % (3.4-9.0); NEUTROPHILS % (MANUAL) 36 % (40-74); PLATELET ESTIMATE SLIGHTLY DECREASED; RBC MORPHOLOGY COMMENT NORMAL
[2018-01-15 08:38] LABS: PLATELET MORPHOLOGY COMMENT FEW LARGE
[2018-01-15 08:42] LABS: SMUDGE CELLS FEW
[2018-01-15] MEDS: METOPROLOL TARTRATE 25 MG TAB PO SCH (09:00)
[2018-01-15] MEDS: FLUCONAZOLE 200 MG/100 ML 100 ML IV SCH (09:00)
[2018-01-15] MEDS: SODIUM BICARBONATE 650 MG TAB PO SCH (09:00)
[2018-01-15] MEDS ORDERED: METOPROLOL TART25 MG PO (10:45)
[2018-01-15] MEDS ORDERED: DIFLUCAN200 MG BLADIN (10:47)
--- NOTE | 2018-03-19 19:12 | Consultation ---
DATE OF CONSULTATION: Jovan Bocanegra is a 57-year-old male who presented with cough and fever. He was subsequently admitted for further evaluation and treatment. History of past illness, history of chronic lymphatic leukemia treated for the last more than 10 years. SOCIAL HISTORY: Noncontributory. FAMILY HISTORY: Noncontributory. ALLERGIES: REPORTED NONE. MEDICATIONS: At this time. 1. Zithromax. 2. Ceftriaxone. 3. Ondansetron. 4. Tylenol. 5. Promethazine with codeine. REVIEW OF SYSTEMS: HEENT: Normal. CARDIAC: Normal. RESPIRATORY: Multiple upper respiratory tract infections. GI: Normal. : Normal. MUSCULOSKELETAL: Had kyphoplasty because of fractured thoracic spine in the past. NEUROENDOCRINE: Normal. HEMATOLOGICAL: History of chronic lymphatic leukemia. PHYSICAL EXAMINATION GENERAL: Moderately built male. No palpable adenopathy. HEART: Normal. LUNGS: Clear. ABDOMEN: Obese. No hepatosplenomegaly. RECTAL EXAM: Deferred. CENTRAL NERVOUS SYSTEM: Essentially normal. IMPRESSION: 1. Fever, rule out sepsis. 2. Chronic lymphatic leukemia. 3. Myelocytic anemia. 4. Thrombocytopenia. 5. Chronic renal failure. 6. Hyponatremia. 7. Hypokalemia. Plan is to give him potassium supplement for a potassium of 3.0. IV fluids for BUN of 27 and creatinine of 2.0. I will observe platelets and give blood transfusions for hemoglobin of 8.6. If it drops aggressive cultures and antibiotics. Discontinue Imbruvica. Job#: [id number]
--- NOTE | 2018-03-19 19:25 | Discharge Summary ---
HISTORY OF PRESENT ILLNESS: Mr. Bocanegra is a 57-year-old male admitted for fever. On admission, routine lab investigations were done consisting of a CBC, which showed a hemoglobin of 8.6, hematocrit 25.5, white count 7300, platelets of 77,000. INR of 1.28, bilirubin 1.0, SGOT 20, SGPT 26, alkaline phosphatase 40. Sodium 129, potassium 3.0, chloride 101, CO2 17, BUN 27, creatinine 2.0. The patient had blood cultures and chest x-ray. Consultation with Dr. Jovan Callejas, bore miner operator, was obtained. The patient also had a consultation with Dr. Bonds. The patient was given potassium supplement for a potassium of 2.8. Subsequently, the potassium was still low on 01/11/2018 to 2.8. Again, potassium supplement was given. It went up to 3.0 on 01/12/2018. Some more potassium supplement was given. The patient's cultures were reported negative. Urine cultures are pending. CAT scans of the abdomen, pelvis and chest were reported negative. The potassium went up to 3.3 on supplements on 01/13/2018. The patient had Diflucan added. Subsequently, the patient continued to improve. The BUN improved to 26 and creatinine 1.3 on 01/14/2018. Hemoglobin dropped to 7.7. Subsequently, the patient was given 2 units of packed RBCs. ANC got better at 2340 on 01/14/2018. The patient's potassium after supplements was 3.5 on 01/14/2018. The patient on 01/15/2018 had a potassium of 3.8, hemoglobin of 8.3, white count 8600, platelets 136,000. Subsequently, he was discharged by Dr. Bonds on antibiotics consisting of Diflucan 200 mg p.o. daily. The patient also was given metoprolol 25 mg p.o. b.i.d. for the tachycardia. The patient was suggested to see Dr. Bonds in 3 weeks. FINAL DIAGNOSES 1. Chronic lymphatic leukemia. 2. Hyponatremia. 3. Hypokalemia. 4. Anemia, myelocytic. 5. Thrombocytopenia. 6. Possible fungal infection causing the fever. The patient will be observed closely by me as an outpatient. MIAN WATSON MD Job#: [id number] cc:CHARAN BONDS MD
== END 2018-01-15 11:57 | disposition home or self-care (01) | DRG 841 ==
LOC: ER 18:30 → IMCU 20:24
PROVIDERS: ADMIT Internal Medicine Medical Oncology; ATTEND Internal Medicine Medical Oncology
PROC: 02HV33Z Insertion of Infusion Device into Superior Vena Cava, Percutaneous Approach (ICD-10-PCS; principal; 2018-01-11)
DX: C95.10 Chronic leukemia of unspecified cell type not having achieved remission (principal); N17.9 Acute kidney failure, unspecified; D84.8 Other specified immunodeficiencies; B39.9 Histoplasmosis, unspecified; E46 Unspecified protein-calorie malnutrition; E87.1 Hypo-osmolality and hyponatremia; D69.6 Thrombocytopenia, unspecified; E87.8 Other disorders of electrolyte and fluid balance, not elsewhere classified; Z68.29 Body mass index [BMI] 29.0-29.9, adult; E87.6 Hypokalemia; E83.42 Hypomagnesemia; E86.0 Dehydration; F17.220 Nicotine dependence, chewing tobacco, uncomplicated; J32.9 Chronic sinusitis, unspecified; R19.7 Diarrhea, unspecified; E66.9 Obesity, unspecified; R00.0 Tachycardia, unspecified; D70.9 Neutropenia, unspecified
CPT/HCPCS: 36415; 36569; 70220; 71045; 71250; 74176; 74470; 80048; 80053; 81001; 82270; 82550; 82553; 82948; 83605; 83735; 83880; 84100; 84132; 84484; 85025; 85045; 85610; 85730; 86332; 86631; 86644; 86645; 86663; 86664; 86665; 86738; 86777; 86778; 87040; 87045; 87086; 87327; 87385; 87400; 87449; 87493; 93005; 93306; 94640; 96361; 96367; 96374; 96375; 96376; 99284; J0456; J0696; J1442; J1450; J2060; J3480; J7030; J7050

== ENCOUNTER 2018-01-17 18:32 | Inpatient (IN) | payer OTHER ==
[~2018-01-17] VITALS: Ht 185.4 cm; Wt 99.8 kg
[~2018-01-17 18:32] MED LIST: DIFLUCAN200 MG BLADIN; METOPROLOL TART25 MG PO
--- OUTSIDE RECORDS SUMMARY | 2018-01-17 18:34 | XMS REPORT | Continuity of Care Document ---
Author Author [facility] Organization 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 No 01/09/18 11:41pm If yes, is advance directive on file with [facility]? No 01/09/18 11:41pm If not on file with [facility] will patient provide a copy? No 01/09/18 11:41pm Do you have a Directive to Physician? No 01/09/18 7:42pm Do you have a Medical Power of Passenger [place]? No 01/09/18 7:42pm Do you have an out of hospital Do Not Resuscitate Order? No 01/09/18 7:42pm Do you have any special needs we should be aware of? No 01/09/18 7:42pm Do you have a support person here with you today? Yes 01/09/18 7:42pm Did patient receive Notice of Privacy Practices? Yes 01/09/18 7:42pm Did patient receive patient rights and responsibilities? Yes 01/09/18 7:42pm Problems Medical Problem Onset Date Status Anemia Unknown Cough Unknown Fever Unknown Hypokalemia Unknown Hypomagnesemia Unknown Leucocytosis Unknown Medications Current Home Medications Medication Dose Units Route Directions Days Qty Instructions Start Date Fluconazole (Diflucan) 200 Mg Tablet Bladder Instillation Daily Metoprolol Tartrate 25 Mg Tablet 25 Mg Oral Twice A Day Social History Social History Problem Response Recorded Date/Time Onset Date Status Hx Psychiatric Problems No 01/09/2018 11:41pm Not Applicable Not Applicable Hx Eating Disorder No 01/09/2018 11:41pm Not Applicable Not Applicable Hx Substance Use Disorder No 01/09/2018 11:41pm Not Applicable Not Applicable Hx Depression No 01/09/2018 11:41pm Not Applicable Not Applicable Hx Alcohol Use No 01/09/2018 11:41pm Not Applicable Not Applicable Hx Substance Use Treatment No 01/09/2018 11:41pm Not Applicable Not Applicable Hx Physical Abuse No 01/09/2018 11:41pm Not Applicable Not Applicable Smoking Status Start Date Stop Date Never Smoker Hospital Discharge Instructions No hospital discharge instruction information available. Plan of Care Discharge Date 01/15/18 11:57am Disposition HOME, SELF-CARE Instructions/Education Provided Anemia - Oncology Prescriptions See Medication Section Functional Status Query Response Date Recorded Assistive Devices None January 09, 2018 9:00pm Ambulation Ability Independent January 09, 2018 9:00pm Toileting Ability Independent January 09, 2018 9:00pm Allergies, Adverse Reactions, Alerts No known allergies. Immunizations No immunization information available. Vital Signs Acute Vital Signs Vital Response Date/Time Temperature (Fahrenheit) 98.4 degrees F (97.6 - 99.5) 01/15/2018 8:31am Pulse Pulse Rate (adult) 85 bpm (60 - 90) 01/15/2018 8:31am Respiratory Rate 16 bpm (12 - 24) 01/15/2018 8:31am Blood Pressure 116/71 mm Hg 01/15/2018 8:31am Height 6 ft 1 in 01/09/2018 11:41pm Weight 220.25 lb 01/12/2018 9:19am Body Mass Index 29.1 kg/m^2 01/14/2018 10:04am Results Laboratory Results Test Name Result Units Flags Reference Collection Date/Time Result Date/ Time Comments White Blood Count 8.69 x10e3/uL 4.8-10.8 01/15/2018 5:56am 01/15/2018 6 :32am Red Blood Count 2.61 x10e6/uL L 4.3-5.7 01/15/2018 5:56am 01/15/2018 6: 32am Hemoglobin 8.3 g/dL L 14.0-18.0 01/15/2018 5:56am 01/15/2018 6:32am Hematocrit 25.4 % L 38.2-49.6 01/15/2018 5:56am 01/15/2018 6:32am Mean Corpuscular Volume 97.3 fL 81-99 01/15/2018 5:56am 01/15/2018 6: 32am Mean Corpuscular Hemoglobin 31.8 pg 28-32 01/15/2018 5:56am 01/15/2018 6:32am Mean Corpuscular Hemoglobin Concent 32.7 g/dL 31-35 01/15/2018 5:56am 01/15/2018 6:32am Red Cell Distribution Width 14.7 % H 11.7-14.4 01/15/2018 5:56am 2017 6:32am Platelet Count 136 x10e3/uL L 140-360 01/15/2018 5:56am 01/15/2018 6: 32am Neutrophils (%) (Auto) 33.7 % L 38.7-80.0 01/15/2018 5:56am 01/15/2018 6 :32am Lymphocytes (%) (Auto) 62.7 % H 18.0-39.1 01/15/2018 5:56am 01/15/2018 6 :32am Monocytes (%) (Auto) 1.6 % L 4.4-11.3 01/15/2018 5:56am 01/15/2018 6: 32am Eosinophils (%) (Auto) 0.5 % 0.0-6.0 01/15/2018 5:56am 01/15/2018 6: 32am Basophils (%) (Auto) 0.1 % 0.0-1.0 01/15/2018 5:56am 01/15/2018 6:32am IM GRANULOCYTES % 1.4 % H 0.0-1.0 01/15/2018 5:56am 01/15/2018 6:32am Neutrophils # (Auto) 2.9 2.1-6.9 01/15/2018 5:56am 01/15/2018 6:32am Lymphocytes # (Auto) 5.5 H 1.0-3.2 01/15/2018 5:56am 01/15/2018 6: 32am Monocytes # (Auto) 0.1 L 0.2-0.8 01/15/2018 5:56am 01/15/2018 6:32am Eosinophils # (Auto) 0.0 0.0-0.4 01/15/2018 5:56am 01/15/2018 6:32am Basophils # (Auto) 0.0 0.0-0.1 01/15/2018 5:56am 01/15/2018 6:32am Absolute Immature Granulocyte (auto 0.12 x10e3/uL H 0-0.1 01/15/2018 5: am 01/15/2018 6:32am Differential Total Cells Counted 100 01/15/2018 5:56am 01/15/2018 8 :38am Neutrophils % (Manual) 36 % L 40-74 01/15/2018 5:56am 01/15/2018 8:38am Lymphocytes % (Manual) 61 % H 19-48 01/15/2018 5:56am 01/15/2018 8:38am Monocytes % (Manual) 1 % L 3.4-9.0 01/15/2018 5:56am 01/15/2018 8:38am Eosinophils % (Manual) 1 % 0-7 01/15/2018 5:56am 01/15/2018 8:38am Metamyelocytes % 1 % H 0-0 01/15/2018 5:56am 01/15/2018 8:38am Reactive Lymphocytes 1 01/10/2018 7:25am 01/10/2018 9:19am Smudge Cells FEW 01/15/2018 5:56am 01/15/2018 8:42am Platelet Estimate SLIGHTLY DECREASED 01/15/2018 5:56am 01/15/2018 8 :38am Platelet Morphology Comment FEW LARGE 01/15/2018 5:56am 01/15/2018 8:38am Polychromasia FEW 01/14/2018 7:52am 01/14/2018 12:15pm Hypochromasia SLIGHT 01/15/2018 5:56am 01/15/2018 8:38am Poikilocytosis SLIGHT 01/11/2018 6:17am 01/11/2018 10:55am Anisocytosis SLIGHT 01/13/2018 5:30am 01/13/2018 7:39am Macrocytosis SLIGHT 01/09/2018 6:44pm 01/09/2018 7:31pm Ovalocytes FEW 01/14/2018 7:52am 01/14/2018 12:15pm Red Cell Morphology Comment NORMAL 01/15/2018 5:56am 01/15/2018 8: 38am Percent Reticulocyte Count 1.1 % 0.8-2.2 01/11/2018 6:17am 01/11/2018 1 :53pm Prothrombin Time 15.0 seconds H 11.9-14.5 01/09/2018 6:44pm 01/09/2018 7 :05pm Prothromb Time International Ratio 1.28 01/09/2018 6:44pm 2017 7:05pm Oral Anticoagulant Therapy INR Values: 1. Low Intensity Therapy 1.5 - 2.0 2. Moderate Intensity Therapy 2.0 - 3.0 3. High Intensity Therapy(1) 2.5 - 3.5 4. High Intensity Therapy(2) 3.0 - 4.0 5. Panic Value INR > 5.0 Activated Partial Thromboplast Time 36.7 seconds H 23.8-35.5 01/09/2018 6 :44pm 01/09/2018 7:05pm Urine Color YELLOW YELLOW 01/10/2018 1:30pm 01/10/2018 2:20pm Urine Clarity CLOUDY H CLEAR 01/10/2018 1:30pm 01/10/2018 2:20pm Urine Specific [place] 1.010 1.010-1.025 01/10/2018 1:30pm 2017 2:20pm Urine pH 5 5 - 7 01/10/2018 1:30pm 01/10/2018 2:20pm Urine Leukocyte Esterase NEGATIVE NEGATIVE 01/10/2018 1:30pm 2017 2:20pm Urine Nitrite NEGATIVE NEGATIVE 01/10/2018 1:30pm 01/10/2018 2:20pm Urine Protein 2+ H NEGATIVE 01/10/2018 1:30pm 01/10/2018 2:20pm Urine Glucose (UA) NEGATIVE NEGATIVE 01/10/2018 1:30pm 01/10/2018 2: 20pm Urine Ketones NEGATIVE NEGATIVE 01/10/2018 1:30pm 01/10/2018 2:20pm Urine Urobilinogen 0.2 mg/dL 0.2 - 1 01/10/2018 1:30pm 01/10/2018 2: 20pm Urine Bilirubin NEGATIVE NEGATIVE 01/10/2018 1:30pm 01/10/2018 2: 20pm Urine Blood 3+ H NEGATIVE 01/10/2018 1:30pm 01/10/2018 2:20pm Urine WBC NONE /HPF 0-5 01/10/2018 1:30pm 01/10/2018 2:28pm Urine RBC 11-20 /HPF H 0-5 01/10/2018 1:30pm 01/10/2018 2:28pm Urine Bacteria FEW /HPF NONE 01/10/2018 1:30pm 01/10/2018 2:28pm Urine Epithelial Cells FEW /LPF NONE 01/10/2018 1:30pm 01/10/2018 2: 28pm Urine Amorphous Sediment FEW FEW 01/10/2018 1:30pm 01/10/2018 2:28pm Sodium Level 137 mmol/L 136-145 01/15/2018 5:56am 01/15/2018 6:29am Potassium Level 3.8 mmol/L 3.5-5.1 01/15/2018 5:56am 01/15/2018 6:29am Chloride Level 109 mmol/L H 98-107 01/15/2018 5:56am 01/15/2018 6:29am Influenza Virus Types A,B Antigen NEGATIVE NEGATIVE 01/10/2018 11: 55am 01/10/2018 12:31pm Carbon Dioxide Level 21 mmol/L L 22-29 01/15/2018 5:56am 01/15/2018 6: 29am Anion Gap 10.8 mmol/L 8-16 01/15/2018 5:56am 01/15/2018 6:29am Blood Urea Nitrogen 21 mg/dL 7-01/15/2018 5:56am 01/15/2018 6:29am Creatinine 1.15 mg/dL 0.72-1.25 01/15/2018 5:56am 01/15/2018 6:29am BUN/Creatinine Ratio 18 6-01/15/2018 5:56am 01/15/2018 6:29am Estimat Glomerular Filtration Rate > 60 ML/MIN 60- 01/15/2018 5:56am 6:29am Ranges were taken from the National Kidney Disease Education Program and the National Kidney Foundation literature. Reference ranges: 60 or greater: Normal 16-59 (for 3 consecutive months): Chronic kidney disease 15 or less: Kidney failure Glucose Level 94 mg/dL 74-118 01/15/2018 5:56am 01/15/2018 6:29am Calcium Level 7.9 mg/dL L 8.4-10.2 01/15/2018 5:56am 01/15/2018 6:29am Bedside Glucose 122 mg/dL H 70-120 01/11/2018 1:03am 01/11/2018 1:47am Meter ID: [id number] Lactic Acid Level 13.5 MG/DL 4.5-19.8 01/09/2018 6:44pm 01/09/2018 7: 11pm Phosphorus Level 2.9 MG/DL 2.3-4.7 01/14/2018 7:5201/14/2018 8:21am Magnesium Level 1.7 MG/DL 1.3-2.1 01/14/2018 7:5201/14/2018 8:21am Total Bilirubin 0.3 mg/dL 0.2-1.2 01/14/2018 7:52am 01/14/2018 8:21am Aspartate Amino Transf (AST/SGOT) 54 IU/L H 5-34 01/14/2018 7:52am 01/14 8:21am Alanine Aminotransferase (ALT/SGPT) 42 IU/L 0-55 01/14/2018 7:52am 8:21am Total Protein 4.9 g/dL L 6.5-8.1 01/14/2018 7:52am 01/14/2018 8:21am Albumin 2.0 g/dL L 3.5-5.0 01/14/2018 7:52am 01/14/2018 8:21am Globulin 2.9 g/dL 2.3-3.5 01/14/2018 7:52am 01/14/2018 8:21am Albumin/Globulin Ratio 0.7 L 0.8-2.0 01/14/2018 7:52am 01/14/2018 8: 21am Alkaline Phosphatase 60 IU/L 40-150 01/14/2018 7:52am 01/14/2018 8: 21am B-Type Natriuretic Peptide 13.2 pg/mL 0-100 01/09/2018 6:44pm 2017 7:21pm Creatine Kinase 298 IU/L H 30-200 01/09/2018 6:44pm 01/09/2018 7:17pm Creatine Kinase MB 1.10 ng/mL 0-5.0 01/09/2018 6:44pm 01/09/2018 7: 21pm Troponin I 0.196 ng/mL 0-0.300 01/09/2018 6:44pm 01/09/2018 7:21pm Chlamydia psittaci IgG Antibody <1:16 Neg:<1:16 01/10/2018 12:55pm 6:18am This test was developed and its performance characteristics determined by [facility]. It has not been cleared or approved by the Food and Drug Administration. The FDA has determined that such clearance or approval is not necessary. Performed at: [address] [id number] Livestock Yard Attendant: Edilberto Farnsworth MD, Phone: [phone] Chlamydia psittaci IgM Antibody <1:10 Neg:<1:10 01/10/2018 12:55pm 6:18am This test was developed and its performance characteristics determined by [facility]. It has not been cleared or approved by the Food and Drug Administration. The FDA has determined that such clearance or approval is not necessary. Chlamydia trachomatis IgM Antibody <0.8 index 0.0-0.7 01/10/2018 12: 55pm 01/14/2018 6:18am Negative <0.8 Borderline 0.8 - 1.0 Positive >1.0 Results for this test are for research purposes only by the assay's box inspector. The performance characteristics of this product have not been established. Results should not be used as a diagnostic procedure without confirmation of the diagnosis by another medically established diagnostic product or procedure. Performed at: [address] [id number] Livestock Yard Attendant: Edilberto Farnsworth MD, Phone: [phone] Mycoplasma pneumoniae IgG Antibody <100 U/mL 0-99 01/10/2018 12:55pm 6:18am Negative: <100 Indeterminate: 100 - 320 Positive: >320 The reference interval established is intended as a baseline only. Values >100 may indicate a recent infection with Mycoplasma pneumoniae and need to be confirmed either by a positive IgM result and/or an additional specimen drawn 2-4 weeks later showing a significant increase in antibody levels. Mycoplasma pneumoniae IgM Antibody <770 U/mL 0-769 01/10/2018 12:55pm 01/14/2018 6:18am Negative <770 Clinically significant amount of M. pneumoniae antibody not detected. Low Positive 770 - 950 M. pneumoniae specific IgM presumptively detected. It is recommended that another sample be collected 1-2 weeks later to assure reactivity. Positive >950 Highly significant amount of M. pneumoniae specific IgM antibody detected. Performed at: [address] [id number] Livestock Yard Attendant: Edilberto Farnsworth MD, Phone: [phone] Noemi-Zuniga Virus IgM Antibody <36.0 U/mL 0.0-35.9 01/10/2018 12:55pm 01/13/2018 6:13am Negative <36.0 Equivocal 36.0 - 43.9 Positive >43.9 Noemi-Zuniga Early Antigen IgG Ab >150.0 U/mL H 0.0-8.9 01/10/2018 12: 55pm 01/13/2018 6:13am Hepatitis A, Hepatitis C and HIV antibodies may cross- react with this assay. Negative < 9.0 Equivocal 9.0 - 10.9 Positive >10.9 Noemi-Zuniga Virus IgG Antibody >600.0 U/mL H 0.0-17.9 01/10/2018 12: 55pm 01/13/2018 6:13am Negative <18.0 Equivocal 18.0 - 21.9 Positive >21.9 Noemi-Zuniga Nuclear Assoc Ag IgG 40.0 U/mL H 0.0-17.9 01/10/2018 12: 55pm 01/13/2018 6:13am Negative <18.0 Equivocal 18.0 - 21.9 Positive >21.9 Noemi-Zuniga Virus Interpretation Comment . 01/10/2018 12:55pm 2017 6:13am EBV Interpretation Chart Interpretation EBV-IgM EA(D)-IgG VCA-IgG EBNA-IgG EBV Seronegative - - - - Early Phase + - - - Acute Primary + +or- + - Infection Convalescence/Past - +or- + + Infection Reactivated +or- + + + Infection + Antibody Present - Antibody Absent Performed at: [facility] [id number] Livestock Yard Attendant: Abhinav Dove MD, Phone: [phone] Stool Occult Blood NEGATIVE NEGATIVE 01/11/2018 6:13pm 01/11/2018 6: 29pm Clostridium Difficile Toxin A & B NEGATIVE NEGATIVE 01/11/2018 6:13pm 01/12/2018 2:27pm Testing on stool aspirate specimens is outside box inspector claims since specimen type not validated on this assay. Microbiology Results Procedure Source Organism/Result Collection Date/Time Result Date/Time Result Status Blood Culture Blood NO GROWTH AFTER 72 HOURS 1:00pm 01/13/2018 1:09pm Preliminary Procedures Procedure Status Date Provider(s) Computed tomography of chest without contrast Active 01/09/[address] of abdomen and pelvis without contrast Active 01/10/18 CHARAN BONDS MD Encounters Encounter Location Arrival/Admit Date Discharge/Depart Date Attending Provider Discharged Inpatient [facility] 01/09/18 8:24pm 01/15/18 11:57am MIAN WATSON MD
[2018-01-17] MEDS ORDERED: IBUPROFEN 600 MG TAB PO STA (19:34)
[2018-01-17 19:47] LABS: BASOPHILS % 0.2 % (0.0-1.0); EOSINOPHILS % 0.1 % (0.0-6.0); HEMATOCRIT 28.1 % (38.2-49.6); HEMOGLOBIN 9.5 g/dL (14.0-18.0); LYMPHOCYTES # (AUTO) 9.6 (1.0-3.2); LYMPHOCYTES % 49.7 % (18.0-39.1); MEAN CORPUSCULAR HEMOGLOBIN 31.8 pg (28-32); MEAN CORPUSCULAR HGB CONC 33.8 g/dL (31-35); MONOCYTES # (AUTO) 0.8 (0.2-0.8); MONOCYTES % 4.3 % (4.4-11.3); NEUTROPHILS # (AUTO) 8.6 (2.1-6.9); NEUTROPHILS % 44.7 % (38.7-80.0); PLATELET COUNT 235 x10e3/uL (140-360); RED BLOOD COUNT 2.99 x10e6/uL (4.3-5.7); RED CELL DISTRIBUTION WIDTH 14.7 % (11.7-14.4)
[2018-01-17 20:07] LABS: ALBUMIN 2.6 g/dL (3.5-5.0); ALBUMIN/GLOBULIN RATIO 0.8 (0.8-2.0); ANION GAP 16.1 mmol/L (8-16); CALCIUM 7.9 mg/dL (8.4-10.2); CREATININE, SERUM 1.49 mg/dL (0.72-1.25); POTASSIUM 4.1 mmol/L (3.5-5.1)
[2018-01-17 20:09] LABS: CLARITY,URINE CLEAR (CLEAR); COLOR,URINE YELLOW (YELLOW)
[2018-01-17 20:10] LABS: LEUKOCYTE ESTERASE ,URINE NEGATIVE (NEGATIVE); NITRITE,URINE NEGATIVE (NEGATIVE); PROTEIN,URINE DIPSTICK NEGATIVE (NEGATIVE)
[2018-01-17 20:11] LABS: BILIRUBIN,URINE NEGATIVE (NEGATIVE); KETONES,URINE NEGATIVE (NEGATIVE); URINE UROBILINOGEN 0.2 mg/dL (0.2 - 1)
--- NOTE | 2018-01-17 20:14 | Diagnostic Imaging Report ---
Frontal and lateral views of the chest. HISTORY: Sepsis COMPARISON: Chest radiograph January 13, 2018 DISCUSSION: Lungs: Mild bilateral infrahilar peribronchial interstitial prominence and mild vascular crowding. No evidence of a consolidative pneumonia or pulmonary alveolar edema. Pleura: No pleural effusion or pneumothorax. Heart and mediastinum: The cardiomediastinal silhouette appears unremarkable. Bones: No acute osseous lesion. IMPRESSION: Bilateral infrahilar mild volume loss and increased interstitial opacities, this favors atelectasis, but an atypical infection or aspiration could have a similar appearance in the appropriate setting. Signed by: Dr. Domingo Ross D.O., M.M.M. on 01/17/2018 8:11 PM
[2018-01-17 20:26] LABS: RBC,URINE 21-50 /HPF (0-5); WBC,URINE (MAN) 21-50 /HPF (0-5)
[2018-01-17 20:27] LABS: BACTERIA,URINE MODERATE /HPF; EPITHELIAL CELLS,URINE FEW /LPF; MUCUS,URINE FEW (RARE)
[2018-01-17] MEDS ORDERED: SODIUM CHLORIDE 0.9% 1000ML 1,000 ML IV ONE ×2 (21:30→21:45)
[2018-01-17] MEDS: CEFTRIAXONE SOD 1 GM VIAL IV SCH (21:50)
[2018-01-17] MEDS: AZITHROMYCIN 500MG/NS 250 ML 250 ML IV SCH (21:55)
[2018-01-17] MEDS ORDERED: ACETAMINOPHEN 1000 MG/100 ML IV PRN (22:00)
[2018-01-17] MEDS: SODIUM CHLORIDE 0.9% 1000ML 1,000 ML IV SCH (23:55)
[2018-01-18 00:12] VITALS: BP_SYST 97; BP_DIAS 53; BP_DIAS 54
[2018-01-18 04:00] VITALS: BP 103/56
[2018-01-18] MEDS: SODIUM CHLORIDE 0.9% 1000ML 1,000 ML IV SCH ×3 (05:46→18:18)
[2018-01-18 07:02] LABS: BASOPHILS % 0.2 % (0.0-1.0); EOSINOPHILS % 0.1 % (0.0-6.0); HEMATOCRIT 24.3 % (38.2-49.6); LYMPHOCYTES # (AUTO) 4.5 (1.0-3.2); LYMPHOCYTES % 43.2 % (18.0-39.1); MEAN CORPUSCULAR HEMOGLOBIN 31.7 pg (28-32); MEAN CORPUSCULAR HGB CONC 32.9 g/dL (31-35); MEAN CORPUSCULAR VOLUME 96.4 fL (81-99); MONOCYTES # (AUTO) 0.5 (0.2-0.8); MONOCYTES % 5.2 % (4.4-11.3); NEUTROPHILS # (AUTO) 5.2 (2.1-6.9); NEUTROPHILS % 50.2 % (38.7-80.0); PLATELET COUNT 149 x10e3/uL (140-360); RED BLOOD COUNT 2.52 x10e6/uL (4.3-5.7); RED CELL DISTRIBUTION WIDTH 14.9 % (11.7-14.4)
[2018-01-18 07:28] LABS: ALBUMIN 2.2 g/dL (3.5-5.0); ALBUMIN/GLOBULIN RATIO 0.8 (0.8-2.0); ANION GAP 11.9 mmol/L (8-16); CALCIUM 7.5 mg/dL (8.4-10.2); CREATININE, SERUM 1.27 mg/dL (0.72-1.25); POTASSIUM 3.9 mmol/L (3.5-5.1)
[2018-01-18 07:39] LABS: CREATINE KINASE 16 IU/L (30-200)
--- NOTE | 2018-01-18 07:41 | Diagnostic Imaging Report ---
EXAMINATION: Chest, CHEST SINGLE (PORTABLE) INDICATION: Chest pain COMPARISON: Chest 2 views 01/17/2018 FINDINGS: LINES: None. Heart: Normal cardiac silhouette. Vascular: The pulmonary vasculature is within normal limits. Atherosclerotic calcifications of the aortic arch. Mediastinum: No mediastinal, hilar, or axillary mass or lymphadenopathy. Lungs: No parenchymal mass. No focal consolidation. Bibasilar atelectasis. Pleura: No pleural effusion. No pneumothorax. Bones: No acute osseous abnormality. Degenerative changes of the thoracic spine. Soft tissues: Normal. Impression: No acute radiographic abnormality. Signed by: Dr. Charles Warren M.D. on 01/18/2018 7:37 AM
[2018-01-18 08:00] VITALS: BP 105/61
[2018-01-18] MEDS ORDERED: FLUCONAZOLE 100 MG TAB PO SCH (09:00)
[2018-01-18 12:00] VITALS: BP 130/65
[2018-01-18 16:00] VITALS: BP 128/74
[2018-01-18 16:04] LABS: CREATINE KINASE 23 IU/L (30-200)
--- NOTE | 2018-01-18 17:28 | Consultation ---
DATE OF CONSULTATION: January 18, 2018 REASON FOR CONSULTATION: Fever. Thank you so much for asking me to see this patient. HISTORY OF PRESENT ILLNESS: Patient is seen and examined and chart reviewed. This patient is well known to me from before. This patient who was recently in the hospital for fever and chills and had extensive workup, but the patient apparently was working in the attic. He is also immunocompromised. He has been having fever for a while and some dry cough and chest x-ray was negative. He was treated with outpatient antibiotic by Dr. Walter, doxycycline but without any improvement and so he was admitted. The patient who was given Diflucan. Since I was concerned about histoplasmosis, serology was ordered. The patient did improve. His fever resolved and he was discharged home. He was telling me he was doing well while he is at home. He was started on new blood pressure medicine which dropped his blood pressure too low. He felt really bad that he had fever again. The patient was admitted. He is currently laying in bed comfortably. He said since he came here, he is feeling better. PAST MEDICAL HISTORY: Has chronic lymphocytic leukemia diagnosed in 2006 in remission. in 2006 and then recurrence in 2016 on Imbruvica. History of hypertension. PAST SURGICAL HISTORY: Total knee replacement. ALLERGIES: NKA. SOCIAL HISTORY: He denies smoking, drug abuse or alcohol abuse. FAMILY HISTORY: Otherwise noncontributory. REVIEW OF SYSTEMS: GENERAL: At the present time he is doing well. HEENT: Negative. PULMONARY: Negative. He denies any cough or shortness of breath. CARDIAC: Negative. : Negative. SKIN: There is no rash. : He denies urgency or frequency. A 14-point review of system reviewed and all negative now at the present time. LABORATORY DATA: Reviewed. When he first came, his white count was 19.27 Hemoglobin 9.5, hematocrit 28. His white count today is 10.36, hemoglobin 8 and his platelet of 149,000. His sodium was 127, potassium 4.1. His creatinine 1.49. Today creatinine 1.27. Liver enzymes within normal limits. When he first came, his liver enzyme was AST 42, ALT 91. His blood cultures are still pending. A chest x-ray when he first came was suggestive of bilateral infiltrate in the bases. A repeat chest x-ray showed no acute abnormalities. PHYSICAL EXAMINATION: GENERAL: He is currently alert and oriented and does not seem to be in acute distress. VITAL SIGNS: When he first came, he had a temperature of 101.6, and today it is 96.7. HEENT: Not icteric. NECK: Supple. CHEST: Clear bilaterally. COR: S1 and S2 normal. No murmur. ABDOMEN: Soft. Bowel sounds present. EXTREMITIES: No edema. SKIN: There is no rash at the present time. LABORATORY DATA: Reviewed. I also reviewed his chart, and his laboratory data from last time. His Chlamydia pneumonia, IgM was negative. Chlamydia trichomonas IgM was also negative. Chlamydia psittaci IgM also was negative. C. diff. last time was negative. Cryptococcal antigen was negative. CMV IgM was negative. EBV antibody IgM was negative, but early antigen was elevated. Also his EBV nuclear antigen was high. His urine histoplasmosis was negative. Influenza was negative. Mycoplasma was negative. I also reviewed his CT from last time when he was here that showed no acute finding. IMPRESSION: 1. At the present time, with his fever, I am concerned about pneumonia. We started him on azithromycin ceftriaxone for community-acquired pneumonia. Will see how he is going to do in the next 24 hours. He is already feeling better. 2. His histoplasmosis antigen came back negative, so we can discontinue his Diflucan. 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 Elevated liver enzyme on admission seems to be getting better. 3. Will follow with you. Thank you for asking me to see this patient. Job#: [id number]
[2018-01-18] MEDS ORDERED: ACETAMINOPHEN 1000 MG/100 ML IV PRN (18:30)
[2018-01-18 20:13] VITALS: BP 115/58
[2018-01-18] MEDS: CEFTRIAXONE SOD 1 GM VIAL IV SCH (21:15)
[2018-01-18] MEDS: AZITHROMYCIN 500MG/NS 250 ML 250 ML IV SCH (21:30)
[2018-01-19] VITALS: BP 129/70
[2018-01-19 04:00] VITALS: BP 109/62
[2018-01-19 08:00] VITALS: BP 123/66
[2018-01-19 08:28] LABS: BASOPHILS % 0.2 % (0.0-1.0); EOSINOPHILS % 0.2 % (0.0-6.0); HEMATOCRIT 24.9 % (38.2-49.6); LYMPHOCYTES # (AUTO) 4.2 (1.0-3.2); LYMPHOCYTES % 50.3 % (18.0-39.1); MEAN CORPUSCULAR HEMOGLOBIN 31.6 pg (28-32); MEAN CORPUSCULAR HGB CONC 32.1 g/dL (31-35); MEAN CORPUSCULAR VOLUME 98.4 fL (81-99); MONOCYTES # (AUTO) 0.4 (0.2-0.8); MONOCYTES % 5.2 % (4.4-11.3); NEUTROPHILS # (AUTO) 3.6 (2.1-6.9); NEUTROPHILS % 43.1 % (38.7-80.0); PLATELET COUNT 156 x10e3/uL (140-360); RED BLOOD COUNT 2.53 x10e6/uL (4.3-5.7); RED CELL DISTRIBUTION WIDTH 14.7 % (11.7-14.4)
[2018-01-19 08:54] LABS: ALANINE AMINOTRANSFERASE 57 IU/L (0-55); ALBUMIN 2.2 g/dL (3.5-5.0); ALBUMIN/GLOBULIN RATIO 0.7 (0.8-2.0); ALKALINE PHOSPHATASE 66 IU/L (40-150); ANION GAP 10.8 mmol/L (8-16); BLOOD UREA NITROGEN 18 mg/dL (7-26); BUN/CREATININE RATIO 17 (6-25); CARBON DIOXIDE 21 mmol/L (22-29); CHLORIDE 106 mmol/L (98-107); CREATININE, SERUM 1.09 mg/dL (0.72-1.25); EST GLOMERULAR FILTRATION RATE > 60 ML/MIN (60-); GLUCOSE 139 mg/dL (74-118); POTASSIUM 3.8 mmol/L (3.5-5.1); SODIUM 134 mmol/L (136-145)
[2018-01-19] MEDS: SODIUM CHLORIDE 0.9% 1000ML 1,000 ML IV SCH ×3 (11:06→21:57)
[2018-01-19 12:00] VITALS: BP 123/66
[2018-01-19 16:00] VITALS: BP 118/80
[2018-01-19 20:05] VITALS: BP 131/74
[2018-01-19] MEDS ORDERED: ACETAMINOPHEN 1000 MG/100 ML IV PRN (21:45)
[2018-01-19] MEDS: CEFTRIAXONE SOD 1 GM VIAL IV SCH (21:57)
[2018-01-20] VITALS: BP 121/75
[2018-01-20 04:00] VITALS: BP 113/69
[2018-01-20 08:00] VITALS: BP 128/75
[2018-01-20 08:50] VITALS: BP 128/75
[2018-01-20 12:32] VITALS: BP 114/77
[2018-01-20] MEDS: CIPROFLOXACIN 500 MG TAB PO SCH (16:25)
[2018-01-20 20:00] VITALS: BP 126/71
[2018-01-20] MEDS: SODIUM CHLORIDE 0.9% 1000ML 1,000 ML IV SCH (22:00)
[2018-01-20] MEDS ORDERED: ACETAMINOPHEN 325 MG TAB PO PRN (22:30)
[2018-01-21] VITALS (9 sets, daily range): BP systolic 104–126; BP diastolic 62–74
[2018-01-21] MEDS: CIPROFLOXACIN 500 MG TAB PO SCH ×2 (08:46→16:27)
[2018-01-21] MEDS: SODIUM CHLORIDE 0.9% 1000ML 1,000 ML IV SCH (17:25)
[2018-01-21] MEDS ORDERED: SODIUM CHLORIDE 0.9% 250ML 250 ML IV ONE (18:15)
[2018-01-22 00:30] VITALS: BP 116/72
[2018-01-22 04:59] VITALS: BP 124/65
[2018-01-22 06:43] LABS: BASOPHILS % 0.1 % (0.0-1.0); EOSINOPHILS # (AUTO) 0.1 (0.0-0.4); EOSINOPHILS % 0.6 % (0.0-6.0); HEMATOCRIT 30.2 % (38.2-49.6); HEMOGLOBIN 9.8 g/dL (14.0-18.0); LYMPHOCYTES % 63.6 % (18.0-39.1); MEAN CORPUSCULAR HEMOGLOBIN 31.2 pg (28-32); MEAN CORPUSCULAR HGB CONC 32.5 g/dL (31-35); MEAN CORPUSCULAR VOLUME 96.2 fL (81-99); MONOCYTES # (AUTO) 0.6 (0.2-0.8); MONOCYTES % 6.4 % (4.4-11.3); NEUTROPHILS # (AUTO) 2.7 (2.1-6.9); NEUTROPHILS % 28.9 % (38.7-80.0); PLATELET COUNT 201 x10e3/uL (140-360); RED BLOOD COUNT 3.14 x10e6/uL (4.3-5.7); RED CELL DISTRIBUTION WIDTH 15.2 % (11.7-14.4)
[2018-01-22 08:00] VITALS: BP 121/70
[2018-01-22] MEDS: CIPROFLOXACIN 500 MG TAB PO SCH ×2 (08:31→16:06)
[2018-01-22 10:51] LABS: EOSINOPHILS % (MANUAL) 2 % (0-7); HYPOCHROMASIA SLIGHT; LYMPHOCYTES % (MANUAL) 49 % (19-48); MONOCYTES % (MANUAL) 1 % (3.4-9.0); NEUTROPHILS % (MANUAL) 48 % (40-74)
[2018-01-22 10:52] LABS: ANISOCYTOSIS SLIGHT; PLATELET ESTIMATE ADEQUATE; PLATELET MORPHOLOGY COMMENT NORMAL; RBC MORPHOLOGY COMMENT NORMAL
--- NOTE | 2018-01-22 11:06 | History and Physical ---
Mr. Bocanegra is a 57-year-old white male who presented with fever, and subsequently was found to have a UTI. Subsequently, admitted by Dr. Boyce who was on-call for me. I had seen the patient on January 20, 2018. HISTORY OF PAST ILLNESSES: History of chronic lymphatic leukemia treated extensively for the last 12-13 years, history of having had an episode with fever with cough last admission. It was thought this was a fungal infection as the patient had worked in his attic with him and his son-in-law had gotten sick. Subsequently, after being afebrile was sent home on Diflucan. History of chronic lymphatic leukemia, history of hypertension, history of knee replacement surgery. SOCIAL HISTORY: Noncontributory. FAMILY HISTORY: Noncontributory. ALLERGIES: REPORTED NONE. MEDICATIONS: At this time, sodium chloride, Tylenol, Rocephin. REVIEW OF SYSTEMS HEENT: Normal. CARDIAC: Normal. RESPIRATORY: Recent admission because of fungal infection. GI: Normal. : At the present time, UTI. MUSCULOSKELETAL: Normal except for knee replacement surgery. NEUROENDOCRINE: Normal. PHYSICAL EXAMINATION GENERAL: A moderately built male. VITALS: Temperature 101 degrees Fahrenheit. NECK: No adenopathy. HEART: Within normal limits. LUNGS: Clear. ABDOMEN: Obese. There is no hepatosplenomegaly. RECTAL: Deferred. 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 IMPRESSION 1. Myelocytic anemia. 2. Chronic lymphatic leukemia. 3. Urinary tract infection. 4. Possible dehydration. PLAN: Treat him aggressively with aggressive antibiotics. Infectious disease consult will be obtained. The patient will be treated after cultures with aggressive antibiotic therapy. Job#: [id number] SD
[2018-01-22 12:00] VITALS: BP 120/84
[2018-01-22] MEDS: SODIUM CHLORIDE 0.9% 1000ML 1,000 ML IV SCH (15:48)
[2018-01-22 16:00] VITALS: BP 131/78
[2018-01-22 20:21] VITALS: BP 120/71
[2018-01-23 02:00] VITALS: BP 120/71
[2018-01-23 04:00] VITALS: BP 113/65
[2018-01-23 08:00] VITALS: BP 119/83
[2018-01-23] MEDS: CIPROFLOXACIN 500 MG TAB PO SCH (10:25)
--- NOTE | 2018-01-23 15:32 | Discharge Summary ---
Mr. Bocanegra is a 57-year-old white male with chronic lymphatic leukemia. He presented with fever. For detailed history and physical, please review my dictation dated 01/20/2018. The patient was seen by Dr. Boyce from 01/17/2018 to 01/19/2018, who was retail presentation specialist for me. On admission, routine lab investigations were done consisting of a urinalysis, which showed a few bacteria. CBC showed hemoglobin of 8 and hematocrit 24.3. Sodium 133, potassium 3.9, chloride 75, CO2 20, BUN 23, creatinine 1.27, glucose 118. Cultures were done, which reported the urine culture to be positive for pseudomonas. Infectious disease consult with Dr. Lucio Moreno was obtained. He put the patient on IV antibiotics. Since the patient had pansensitivity as recorded by him on 01/20/2018, the patient was switched to Cipro. Subsequently, the patient still remained febrile. However, now, over the last 48 hours, the patient was afebrile. Subsequently, he is being discharged at the present time on his home medications except the biological response modifier for the chronic lymphatic leukemia. The patient at the present time is on Cipro 500 mg p.o. b.i.d. for the next 11 more days as per infectious disease wig sales consultant. I have advised the patient to see me in the office in 2 weeks. The patient was also symptomatic with anemia, with a drop in the hemoglobin to 8 on 01/21/2018. Subsequently, 2 units of packed RBCs were given, which brought the hemoglobin up to 9.8. The white count was 9400 and platelets 201,000. Sodium was 138, potassium 3.8, chloride 106, CO2 21, BUN 18, creatinine 1.09. The patient will be seen in the office in 2 weeks. FINAL DIAGNOSES 1. Urinary tract infection with pseudomonas. 2. Chronic lymphatic leukemia. 3. Myelophthisic anemia, symptomatic. MIAN WATSON MD Job#: [id number]
== END 2018-01-23 11:21 | disposition home or self-care (01) | DRG 690 ==
LOC: ER 18:32 → ERHOLD 21:57 → MED/SURG2 23:03
PROVIDERS: ADMIT Internal Medicine Medical Oncology; ATTEND Internal Medicine Medical Oncology
PROC: 30233N1 Transfusion of Nonautologous Red Blood Cells into Peripheral Vein, Percutaneous Approach (ICD-10-PCS; principal; 2018-01-21)
DX: N39.0 Urinary tract infection, site not specified (principal); C91.10 Chronic lymphocytic leukemia of B-cell type not having achieved remission; D61.82 Myelophthisis; E86.0 Dehydration; N28.9 Disorder of kidney and ureter, unspecified; R53.81 Other malaise
CPT/HCPCS: 36415; 71045; 71046; 80053; 81001; 82550; 82553; 83605; 84484; 85025; 86850; 86900; 86920; 87040; 87086; 87186; 93005; 99284; J0456; J0696; J7030; P9016

== ENCOUNTER 2018-07-19 18:26 | Inpatient (IN) | payer OTHER ==
[~2018-07-19] VITALS: Ht 185.4 cm; Wt 103.2 kg
[2018-07-19] MEDS ORDERED: SODIUM CHLORIDE 0.9% 1000ML 1,000 ML IV STA (18:57)
[2018-07-19 19:25] LABS: INR 1.05; PROTHROMBIN TIME 14.7 seconds (11.9-14.5)
[2018-07-19 19:26] LABS: PARTIAL THROMBOPLASTIN TIME 34.6 seconds (23.8-35.5)
[2018-07-19] MEDS ORDERED: PIPER-TAZ 3.375 GM 50 ML IV ONE (19:30)
[2018-07-19 19:34] LABS: BASOPHILS % 0.1 % (0.0-1.0); HEMATOCRIT 35.1 % (38.2-49.6); HEMOGLOBIN 11.9 g/dL (14.0-18.0); LYMPHOCYTES # (AUTO) 10.3 (1.0-3.2); LYMPHOCYTES % 75.1 % (18.0-39.1); MEAN CORPUSCULAR HEMOGLOBIN 32.7 pg (28-32); MEAN CORPUSCULAR HGB CONC 33.9 g/dL (31-35); MEAN CORPUSCULAR VOLUME 96.4 fL (81-99); MONOCYTES % 7.4 % (4.4-11.3); NEUTROPHILS # (AUTO) 2.3 (2.1-6.9); NEUTROPHILS % 16.9 % (38.7-80.0); PLATELET COUNT 89 x10e3/uL (140-360); RED BLOOD COUNT 3.64 x10e6/uL (4.3-5.7); RED CELL DISTRIBUTION WIDTH 14.5 % (11.7-14.4)
[2018-07-19 19:35] LABS: ALBUMIN 4.1 g/dL (3.5-5.0); ALBUMIN/GLOBULIN RATIO 1.4 (0.8-2.0); ANION GAP 15.4 mmol/L (8-16); CALCIUM 9.4 mg/dL (8.4-10.2); CREATININE, SERUM 1.61 mg/dL (0.72-1.25); POTASSIUM 3.4 mmol/L (3.5-5.1)
[2018-07-19 19:37] LABS: CLARITY,URINE SL CLOUDY (CLEAR); COLOR,URINE YELLOW (YELLOW); KETONES,URINE NEGATIVE (NEGATIVE); LEUKOCYTE ESTERASE ,URINE NEGATIVE (NEGATIVE); NITRITE,URINE NEGATIVE (NEGATIVE); PROTEIN,URINE DIPSTICK TRACE (NEGATIVE); URINE UROBILINOGEN 0.2 mg/dL (0.2 - 1)
[2018-07-19] MEDS ORDERED: SODIUM CHLORIDE 0.9% 1000ML 1,000 ML ONE (19:37)
[2018-07-19 19:38] LABS: BILIRUBIN,URINE NEGATIVE (NEGATIVE)
[2018-07-19 19:42] LABS: AMORPHOUS SEDIMENT,URINE MODERATE (FEW); BACTERIA,URINE FEW /HPF; EPITHELIAL CELLS,URINE FEW /LPF; WBC,URINE (MAN) 0-5 /HPF (0-5)
[2018-07-19 19:43] LABS: MUCUS,URINE FEW (RARE)
--- NOTE | 2018-07-19 19:44 | Diagnostic Imaging Report ---
CHEST SINGLE (PORTABLE), 07/19/2018 6:57 PM Technique: CHEST SINGLE (PORTABLE) Comparison: 01/18/2018. Clinical history: Fever Findings: Unremarkable portable appearance of the heart, mediastinum, lungs and pleural spaces. Impression: 1. Lines/Tubes: None 2. No acute abnormality. Signed by: Dr Joselyn Lee MD on 07/19/2018 7:40 PM
[2018-07-19] MEDS ORDERED: ACETAMINOPHEN 325 MG TAB PO ONE (20:00)
--- NOTE | 2018-07-19 20:27 | Diagnostic Imaging Report ---
FOOT RIGHT COMPLETE Comparison: None Clinical history: Osteomyelitis Findings: No acute fracture or dislocation. No osseous erosion or distraction. Incidental Achilles enthesophyte. Mild soft tissue swelling without soft tissue gas. Impression: No radiographic evidence of osteomyelitis Signed by: Dr Joselyn Lee MD on 07/19/2018 8:23 PM
[2018-07-19] MEDS ORDERED: VANCOMYCIN 1GM/NS 250 ML 250 ML IV ONE (20:30)
[2018-07-19 20:38] LABS: NEUTROPHILS % (MANUAL) 20 % (40-74)
[2018-07-19 20:39] LABS: LYMPHOCYTES % (MANUAL) 74 % (19-48); MONOCYTES % (MANUAL) 6 % (3.4-9.0); RBC MORPHOLOGY COMMENT NORMAL
[2018-07-19] MEDS ORDERED: ONDANSETRON HCL INJ 2 MG/ML VIAL IV PRN (22:00)
[2018-07-19 22:28] VITALS: BP 89/50
[2018-07-19 23:00] VITALS: BP 89/50
[2018-07-19] MEDS: SODIUM CHLORIDE 0.9% 1000ML 1,000 ML IV SCH (23:00)
[2018-07-19 23:23] VITALS: BP 89/50
[2018-07-19] MEDS ORDERED: ZYRTEC10 M3 PO (23:57)
[2018-07-19] MEDS ORDERED: RAMIPRIL5 MG PO (23:57)
[2018-07-20] MEDS: PIPER-TAZ 3.375 GM 50 ML IV SCH ×2 (03:43→12:25)
[2018-07-20 04:00] VITALS: BP 90/55
[2018-07-20 05:09] LABS: BASOPHILS % 0.1 % (0.0-1.0); EOSINOPHILS % 0.1 % (0.0-6.0); HEMATOCRIT 27.9 % (38.2-49.6); HEMOGLOBIN 9.3 g/dL (14.0-18.0); LYMPHOCYTES # (AUTO) 5.7 (1.0-3.2); LYMPHOCYTES % 74.6 % (18.0-39.1); MEAN CORPUSCULAR HEMOGLOBIN 32.9 pg (28-32); MEAN CORPUSCULAR HGB CONC 33.3 g/dL (31-35); MEAN CORPUSCULAR VOLUME 98.6 fL (81-99); MONOCYTES # (AUTO) 0.6 (0.2-0.8); MONOCYTES % 7.2 % (4.4-11.3); NEUTROPHILS # (AUTO) 1.3 (2.1-6.9); NEUTROPHILS % 17.3 % (38.7-80.0); PLATELET COUNT 53 x10e3/uL (140-360); RED BLOOD COUNT 2.83 x10e6/uL (4.3-5.7); RED CELL DISTRIBUTION WIDTH 14.6 % (11.7-14.4)
[2018-07-20 05:36] LABS: ALBUMIN 3.1 g/dL (3.5-5.0); ALBUMIN/GLOBULIN RATIO 1.3 (0.8-2.0); ANION GAP 10.4 mmol/L (8-16); CALCIUM 7.9 mg/dL (8.4-10.2); CREATININE, SERUM 1.3 mg/dL (0.72-1.25); POTASSIUM 3.4 mmol/L (3.5-5.1)
[2018-07-20] MEDS: SODIUM CHLORIDE 0.9% 1000ML 1,000 ML IV SCH ×2 (05:48→13:48)
[2018-07-20 08:00] VITALS: BP 118/65
[2018-07-20] MEDS ORDERED: VANCOMYCIN 1GM/NS 250 ML 250 ML IV SCH ×2 (09:00→14:30)
[2018-07-20 12:00] VITALS: BP 140/76
[2018-07-20] MEDS: ACETAMINOPHEN 325 MG TAB PO PRN ×2 (12:25→21:45)
[2018-07-20] MEDS: CEFEPIME HCL 1 GM VIAL IV SCH (15:30)
--- NOTE | 2018-07-20 15:34 | Consultation ---
DATE OF CONSULTATION: REASON FOR CONSULTATION: Cellulitis of the right foot. Thank you so much for asking me to see this patient. Patient is seen and examined. Chart reviewed. HISTORY OF PRESENT ILLNESS: This is a very pleasant 58-year-old gentleman who has history of leukemia. Patient is a patient of Dr. Messer. Patient comes in with redness and swelling of his right foot, which he had for 3 days, getting progressively worse. The patient denies a history of trauma. A few months ago, he stepped on something, but that was a few months ago. Redness started over the toes going all the way to his knee. No fever, no chills now, but he did temperature at the house of 102 according to him. He came to the emergency room. I discussed the case in emergency room when he was being admitted and started on antibiotic. PAST MEDICAL HISTORY: CLL and hypertension. PAST SURGICAL HISTORY: Surgeries on both knees, total knee replacement, bilateral tonsillectomy. ALLERGIES: NKA. SOCIAL HISTORY: He denies smoking, drug abuse, or alcohol abuse. FAMILY HISTORY: Otherwise noncontributory. REVIEW OF SYSTEMS: At the present time; HEENT: Negative. PULMONARY: Negative. CARDIAC: Negative. : Negative. SKIN: There is no rash. All symptoms are within normal limit. PHYSICAL EXAMINATION GENERAL: He is alert, oriented, does not seem to be in acute distress. VITAL SIGNS: Stable. Currently afebrile. HEENT: He does not appear icteric. NECK: Supple. CHEST: Clear bilateral. HEART: S1, S2. No S3, S4, or murmur. ABDOMEN: Soft. Bowel sounds present. No tenderness. EXTREMITIES: On the foot, there is erythema and there is edema noted on the right foot, but the pulses are strong and there is no eschar or black discoloration. LABORATORY DATA: On admission, white count was 13.67, hemoglobin 11.9. His sodium 132, potassium 3.4, and creatinine 1.6, it did come to 1.3. Patient was started on Zosyn and vancomycin. IMPRESSION 1. Sepsis on admission, getting better. 2. Cellulitis of the leg. 3. Chronic lymphocytic leukemia. 4. Chronic kidney disease. PLAN 1. We will continue with vancomycin, but we will adjust the dose to 1 gram q.24 hours.\ 2. We will obtain a trough with the third dose. 3. We will do cefepime 1 gram q.24. 4. We will see how he is going to do clinically over the next 24 hours. Recheck CBC. Recheck chem panel. We will follow. Job#: [id number] LPA
[2018-07-20 16:00] VITALS: BP 102/68
[2018-07-20] MEDS ORDERED: POTASSIUM CHLORIDE 20 MEQ TAB CR PO ONE (19:45)
[2018-07-20 20:06] VITALS: BP 107/56
[2018-07-21] VITALS (10 sets, daily range): BP systolic 105–135; BP diastolic 56–90
[2018-07-21] MEDS: SODIUM CHLORIDE 0.9% 1000ML 1,000 ML IV SCH ×2 (00:34→14:01)
[2018-07-21] MEDS: CEFEPIME HCL 1 GM VIAL IV SCH ×2 (02:40→15:55)
[2018-07-21 06:14] LABS: BASOPHILS % 0.2 % (0.0-1.0); EOSINOPHILS % 0.3 % (0.0-6.0); HEMATOCRIT 28.8 % (38.2-49.6); HEMOGLOBIN 9.5 g/dL (14.0-18.0); LYMPHOCYTES # (AUTO) 4.6 (1.0-3.2); LYMPHOCYTES % 78.4 % (18.0-39.1); MONOCYTES # (AUTO) 0.4 (0.2-0.8); MONOCYTES % 6.3 % (4.4-11.3); NEUTROPHILS # (AUTO) 0.8 (2.1-6.9); NEUTROPHILS % 14.5 % (38.7-80.0); PLATELET COUNT 58 x10e3/uL (140-360); RED BLOOD COUNT 2.88 x10e6/uL (4.3-5.7); RED CELL DISTRIBUTION WIDTH 14.5 % (11.7-14.4)
[2018-07-21 06:42] LABS: ANION GAP 9.4 mmol/L (8-16); BLOOD UREA NITROGEN 18 mg/dL (7-26); BUN/CREATININE RATIO 17 (6-25); CALCIUM 8.3 mg/dL (8.4-10.2); CARBON DIOXIDE 22 mmol/L (22-29); CHLORIDE 108 mmol/L (98-107); CREATININE, SERUM 1.09 mg/dL (0.72-1.25); EST GLOMERULAR FILTRATION RATE > 60 ML/MIN (60-); GLUCOSE 118 mg/dL (74-118); POTASSIUM 3.4 mmol/L (3.5-5.1); SODIUM 136 mmol/L (136-145)
[2018-07-21] MEDS: RAMIPRIL 5 MG CAP PO SCH (08:44)
[2018-07-21] MEDS: LORATADINE 10 MG TAB PO SCH (08:44)
[2018-07-21] MEDS ORDERED: POTASSIUM CHLORIDE 20MEQ/100ML 200 ML IV ONE (09:45)
[2018-07-21] MEDS: VANCOMYCIN 1GM/NS 250 ML 250 ML IV SCH (10:24)
[2018-07-21 13:02] LABS: LYMPHOCYTES % (MANUAL) 76 % (19-48); MONOCYTES % (MANUAL) 2 % (3.4-9.0); NEUTROPHILS % (MANUAL) 22 % (40-74)
[2018-07-21 13:03] LABS: PLATELET ESTIMATE MODERATELY DECREASED; PLATELET MORPHOLOGY COMMENT NORMAL
[2018-07-22 00:36] VITALS: BP 109/69
[2018-07-22] MEDS: CEFEPIME HCL 1 GM VIAL IV SCH ×2 (02:13→15:13)
[2018-07-22] MEDS: SODIUM CHLORIDE 0.9% 1000ML 1,000 ML IV SCH ×2 (03:14→16:47)
[2018-07-22 05:21] VITALS: BP 112/68
[2018-07-22 06:16] LABS: ANION GAP 13.1 mmol/L (8-16); POTASSIUM 4.1 mmol/L (3.5-5.1)
[2018-07-22 07:50] VITALS: BP 116/63
[2018-07-22] MEDS: RAMIPRIL 5 MG CAP PO SCH (08:34)
[2018-07-22] MEDS: VANCOMYCIN 1GM/NS 250 ML 250 ML IV SCH (08:35)
[2018-07-22] MEDS: LORATADINE 10 MG TAB PO SCH (08:35)
[2018-07-22 13:16] VITALS: BP 115/64
[2018-07-22 17:01] VITALS: BP 106/67
[2018-07-22 20:00] VITALS: BP 120/64
[2018-07-23] VITALS (8 sets, daily range): BP systolic 109–121; BP diastolic 59–73
[2018-07-23] MEDS: CEFEPIME HCL 1 GM VIAL IV SCH ×2 (03:26→15:23)
[2018-07-23] MEDS: SODIUM CHLORIDE 0.9% 1000ML 1,000 ML IV SCH ×2 (05:10→19:14)
[2018-07-23] MEDS: LORATADINE 10 MG TAB PO SCH (08:56)
[2018-07-23] MEDS: RAMIPRIL 5 MG CAP PO SCH (08:56)
[2018-07-23] MEDS: VANCOMYCIN 1GM/NS 250 ML 250 ML IV SCH ×3 (10:05→22:30)
[2018-07-24] VITALS (7 sets, daily range): BP systolic 109–129; BP diastolic 57–70
[2018-07-24] MEDS: CEFEPIME HCL 1 GM VIAL IV SCH ×2 (02:55→15:19)
[2018-07-24] MEDS: LORATADINE 10 MG TAB PO SCH (09:00)
[2018-07-24] MEDS: RAMIPRIL 5 MG CAP PO SCH (09:00)
[2018-07-24] MEDS: VANCOMYCIN 1GM/NS 250 ML 250 ML IV SCH ×2 (10:30→22:30)
--- NOTE | 2018-07-24 16:21 | Diagnostic Imaging Report ---
EXAMINATION: CHEST XRAY LINE PLACEMENT INDICATION: Cellulitis area PICC line placement COMPARISON: None FINDINGS: TUBES and LINES: Right peripherally inserted central venous catheter with distal tip at the right atrial/superior vena cava junction. LUNGS: Lungs are well inflated. Lungs are clear. There is no evidence of pneumonia or pulmonary edema. PLEURA: No pleural effusion or pneumothorax. HEART AND MEDIASTINUM: The cardiomediastinal silhouette is unremarkable. BONES AND SOFT TISSUES: No acute osseous lesion. Soft tissues are unremarkable. UPPER ABDOMEN: No free air under the diaphragm. IMPRESSION: Right peripherally inserted central venous catheter with distal tip at the right atrial/superior vena cava junction. Signed by: Dr. Olaf Haywood M.D. on 07/24/2018 4:18 PM
[2018-07-24] MEDS: SODIUM CHLORIDE 0.9% 1000ML 1,000 ML IV SCH (21:54)
[2018-07-25] VITALS: BP 99/55
[2018-07-25] MEDS: CEFEPIME HCL 1 GM VIAL IV SCH (02:40)
[2018-07-25 04:00] VITALS: BP 100/59
[2018-07-25] MEDS: RAMIPRIL 5 MG CAP PO SCH (09:00)
[2018-07-25] MEDS: LORATADINE 10 MG TAB PO SCH (09:00)
[2018-07-25 09:16] VITALS: BP 109/64
[2018-07-25] MEDS: SODIUM CHLORIDE 0.9% 1000ML 1,000 ML IV SCH (11:16)
[2018-07-25] MEDS: VANCOMYCIN 1GM/NS 250 ML 250 ML IV SCH (11:16)
[2018-07-25 12:29] VITALS: BP 115/58
--- NOTE | 2018-09-21 09:27 | Discharge Summary ---
HISTORY AND HOSPITAL COURSE: Mr. Jovan Bocanegra is a 58-year-old white male with chronic lymphocytic leukemia admitted with cellulitis of the right leg. For detailed history and physical, please review my dictation dated 07/20/2018. On admission, routine lab and investigations were done consisting of CBC which showed a hemoglobin of 9.5, hematocrit 28.8, white count of 5800, platelets 58,000. BUN and creatinine were 18 and 1.09 respectively. Glucose 118. Sodium 138, potassium 4.1, chloride 76, CO2 23. Bilirubin 1.3, SGOT 11, SGPT 10, alkaline phosphatase 37. The patient had blood cultures which were reported essentially negative. The patient was put on vancomycin and cefepime by Dr. Moreno, an infectious disease operations consultant. The patient started feeling better on 07/25/2018. The patient was fairly stable. There was less cellulitis. Subsequently, Dr. Moreno had made arrangement for him to get the antibiotics as outpatient. Subsequently discharged in a satisfactory condition. FINAL DIAGNOSES: 1. Chronic lymphocytic leukemia. 2. Anemia because of chronic lymphocytic leukemia. 3. Thrombocytopenia because of chronic lymphocytic leukemia. 4. Cellulitis of the right lower extremity. PLAN: The patient will be seen in the office in a month. Job#: [id number] [email or web address]
== END 2018-07-25 14:58 | disposition home health service (06) | DRG 871 ==
LOC: ER 18:26 → ERHOLD 21:56 → MED/SURG2 22:22
PROVIDERS: ADMIT Internal Medicine Medical Oncology; ATTEND Internal Medicine Medical Oncology
PROC: 02HV33Z Insertion of Infusion Device into Superior Vena Cava, Percutaneous Approach (ICD-10-PCS; principal; 2018-07-24)
DX: A41.89 Other specified sepsis (principal); R65.21 Severe sepsis with septic shock; L03.115 Cellulitis of right lower limb; N17.9 Acute kidney failure, unspecified; C91.10 Chronic lymphocytic leukemia of B-cell type not having achieved remission; I12.9 Hypertensive chronic kidney disease with stage 1 through stage 4 chronic kidney disease, or unspecified chronic kidney disease; N18.9 Chronic kidney disease, unspecified; E87.6 Hypokalemia; E88.09 Other disorders of plasma-protein metabolism, not elsewhere classified; D69.59 Other secondary thrombocytopenia; M10.9 Gout, unspecified; E83.51 Hypocalcemia
CPT/HCPCS: 36415; 36569; 71045; 80048; 80051; 80053; 80202; 81001; 82948; 83605; 84550; 85025; 85610; 85730; 87040; 87086; 93005; 96361; 99284; J0692; J2543; J3370; J3480; J7030

== ENCOUNTER → 2022-04-18 | Day surgery (SDC) | payer BC, OTHER ==
[2022-04-16 08:51] LABS: BASOPHILS % 0.1 % (0.0-1.0); EOSINOPHILS # (AUTO) 0.1 (0.0-0.4); EOSINOPHILS % 0.8 % (0.0-6.0); HEMATOCRIT 41.9 % (38.2-49.6); HEMOGLOBIN 13.4 g/dL (14.0-18.0); LYMPHOCYTES # (AUTO) 4.2 (1.0-3.2); LYMPHOCYTES % 54.8 % (18.0-39.1); MEAN CORPUSCULAR HEMOGLOBIN 30.9 pg (28-32); MEAN CORPUSCULAR VOLUME 96.8 fL (81-99); MONOCYTES # (AUTO) 0.4 (0.2-0.8); MONOCYTES % 5.7 % (4.4-11.3); NEUTROPHILS # (AUTO) 2.9 (2.1-6.9); NEUTROPHILS % 37.6 % (38.7-80.0); PLATELET COUNT 146 x10e3/uL (140-360); RED BLOOD COUNT 4.33 x10e6/uL (4.3-5.7); RED CELL DISTRIBUTION WIDTH 14.1 % (11.7-14.4)
[2022-04-16 09:08] LABS: ANION GAP 14.7 mmol/L (8-16); BLOOD UREA NITROGEN 26 mg/dL (7-26); BUN/CREATININE RATIO 17 (6-25); CALCIUM 9.1 mg/dL (8.4-10.2); CARBON DIOXIDE 24 mmol/L (22-29); CHLORIDE 104 mmol/L (98-107); CREATININE, SERUM 1.57 mg/dL (0.72-1.25); GLUCOSE 124 mg/dL (74-118); POTASSIUM 4.7 mmol/L (3.5-5.1); SODIUM 138 mmol/L (136-145)
[~2022-04-18] MED LIST changes: +ALLOPURINOL100 MG PO; +BUPIVACAINE 0.25% 30ML SDV ONE; +DEXAMETHASONE SOD PHOS INJ 4 MG/ML SDV ONE; +FENTANYL CITRATE/PF 100MCG/2 ML INJ ONE; +HYDROCODONE/APAP 7.5MG-325MG 1 EA TAB ONE; +IMBRUVICA140 MG PO; +LIDOCAINE 2% /EPINEPHRINE 20 ML SDV INJ ONE; +LIDOCAINE HCL 2% LOCAL INJ 5 ML SDV VIAL INJ ONE; +MIDAZOLAM HCL 2 MG/2 ML VIAL ONE; +NOVOLOG100 UNIT/1 SC; +ONDANSETRON HCL INJ 2MG/ML 2ML 2 MG/ML VIAL ONE; +POVIDONE IODINE 0.05% 0.05 % ML PO ONE; +PROPOFOL IV EMULSION 10 MG/ML 20 ML VIAL ONE; +RAMIPRIL5 MG PO; +SEVOFLURANE INHAL SOLN 250 ML PEN BTL ONE; +TRESIBA FL100 UNIT/1 SC; +ZYRTEC10 M3 PO
[2022-04-18 14:45] VITALS: BP 113/57
== END | disposition home or self-care (01) ==
LOC: OR 07:55
PROVIDERS: ATTEND Surgery
DX: K40.90 Unilateral inguinal hernia, without obstruction or gangrene, not specified as recurrent (principal); I10 Essential (primary) hypertension; E11.9 Type 2 diabetes mellitus without complications; H91.90 Unspecified hearing loss, unspecified ear; R42 Dizziness and giddiness; E66.9 Obesity, unspecified; C95.91 Leukemia, unspecified, in remission; Z01.810 Encounter for preprocedural cardiovascular examination; Z01.812 Encounter for preprocedural laboratory examination; Z01.818 Encounter for other preprocedural examination; Z20.822 Contact with and (suspected) exposure to COVID-19; Z79.4 Long term (current) use of insulin; Z79.899 Other long term (current) drug therapy
CPT/HCPCS: 0223U; 36415; 49505; 71046; 80048; 85025; 93005; C1781; J1100; J2001 ×2; J2250; J2405; J2704; J3010

== ENCOUNTER → 2022-06-15 | Day surgery (SDC) | payer BC ==
[2022-06-11 08:46] LABS: BASOPHILS % 0.1 % (0.0-1.0); EOSINOPHILS # (AUTO) 0.1 (0.0-0.4); EOSINOPHILS % 0.8 % (0.0-6.0); HEMATOCRIT 42.4 % (38.2-49.6); HEMOGLOBIN 13.5 g/dL (14.0-18.0); LYMPHOCYTES # (AUTO) 4.5 (1.0-3.2); LYMPHOCYTES % 58.7 % (18.0-39.1); MEAN CORPUSCULAR HEMOGLOBIN 31.6 pg (28-32); MEAN CORPUSCULAR HGB CONC 31.8 g/dL (31-35); MEAN CORPUSCULAR VOLUME 99.3 fL (81-99); MONOCYTES # (AUTO) 0.3 (0.2-0.8); MONOCYTES % 4.1 % (4.4-11.3); NEUTROPHILS # (AUTO) 2.7 (2.1-6.9); NEUTROPHILS % 35.9 % (38.7-80.0); PLATELET COUNT 132 x10e3/uL (140-360); RED BLOOD COUNT 4.27 x10e6/uL (4.3-5.7)
[2022-06-11 09:05] LABS: ANION GAP 15.7 mmol/L (8-16); CALCIUM 9.2 mg/dL (8.4-10.2); CREATININE, SERUM 1.36 mg/dL (0.72-1.25); POTASSIUM 4.7 mmol/L (3.5-5.1)
[~2022-06-15] MED LIST changes: +ACETAMINOPHEN 1000 MG/100 ML IV ONE; +DEXMEDETOMIDINE HCL 200 MCG/2 ML VIAL ONE; -HYDROCODONE/APAP 7.5MG-325MG 1 EA TAB ONE; +KETOROLAC TROMETHAMINE 30 MG/ML VIAL ONE; +Morphine 10mg syringe 10 MG/ML INJ ONE
[2022-06-15 12:45] VITALS: BP 119/79
== END | disposition home or self-care (01) ==
LOC: OR 07:04
PROVIDERS: ATTEND Surgery
DX: K40.90 Unilateral inguinal hernia, without obstruction or gangrene, not specified as recurrent (principal); D17.6 Benign lipomatous neoplasm of spermatic cord; C91.10 Chronic lymphocytic leukemia of B-cell type not having achieved remission; E11.9 Type 2 diabetes mellitus without complications; I10 Essential (primary) hypertension; I45.10 Unspecified right bundle-branch block; M10.9 Gout, unspecified; H91.90 Unspecified hearing loss, unspecified ear; Z01.810 Encounter for preprocedural cardiovascular examination; Z01.812 Encounter for preprocedural laboratory examination; Z01.818 Encounter for other preprocedural examination; Z20.822 Contact with and (suspected) exposure to COVID-19; Z79.4 Long term (current) use of insulin; Z79.899 Other long term (current) drug therapy
CPT/HCPCS: 0223U; 36415 ×2; 49505; 71046; 80048; 82948; 85025; C1781; J0131; J1100; J1885; J2001 ×2; J2250; J2270; J2405; J2704; J3010